=== PATIENT | female | born 1950 | race Caucasian/White ===

== ENCOUNTER 2020-01-17 13:04 | Outpatient (CLI) | payer MEDICARE, OTHER, SELFPAY ==
--- NOTE | 2020-01-22 15:57 | SLEEP_ITS ---
Home Sleep Test DATE OF STUDY: 01/17/2020 REASON FOR THE STUDY: Hypersomnia. HISTORY: This patient is a 69-year-old woman, 5 feet 4 inches tall, weighing 197 pounds with a body mass index of 33.8. She has complaints of loud snoring, which has been going on several years and difficulty waking up frequently throughout the night. She constantly snores and it is frequently loud enough that others complain about it. She does not awaken from sleep feeling short of breath or awaken with heartburn, belching or coughing. She frequently has trouble sleeping with a cold. She does not wake up gasping for breath at night, does not have breathing problems at night observed by others. Does not sweat excessively at night and does not notice her heart pounding or beating irregularly at night. She takes a daily nap in the afternoon. She does not fall asleep involuntarily or while driving. She does not have loss of muscle tone with strong emotion. She does not have daytime difficulties due to excessive sleepiness. She does not feel paralyzed on waking or falling asleep and does not have vivid dreamlike scenes upon awakening or falling asleep. She is not afraid to go to sleep. She does not have nightmares. She rarely remembers her dreams. She frequently has racing thoughts. She rarely feels sad. Occasionally feels anxious. She does not have muscular tension or notices parts of her body jerking. She does not kick at night. She does not have crawly achy feelings in her legs. She rarely has leg cramps at night. She does not have morning jaw pain. She constantly grinds her teeth and has a retainer to prevent this. She is not bothered by pain during the day. She is not awakened by pain during the night. She rarely wakes up feeling stiff in the morning. She does not wake up with sore achy muscles or spine pain. Normal bedtime is between 09:00 and 10:00 p.m., taking 30 minutes to fall asleep, typically waking twice at night, staying awake anywhere between moments and up to an hour. During this time, she will go to the bathroom. She wakes up at 7:00 in the morning. Weekend schedule is the same. She does take naps. A short nap may be refreshing. Most of the time, she feels adequate in the morning. She feels better in the morning than other times of day. MEDICAL COMORBIDITIES: She has prediabetes, hyperlipidemia, overactive bladder. MEDICATIONS: 1. Oxybutynin 10 mg daily. 2. Simvastatin 20 mg daily. HABITS: Smoked 30 years ago. Caffeine, 1 cup of coffee per day. Alcohol once to twice per month. DESCRIPTION OF THE STUDY: On the [place] Sleepiness Scale, the score is 8. This was conducted as an unattended type 3 portable home sleep test using 4 channel monitoring with respiratory effort channel, snoring channel, oxygen saturation channel, and heart rate channel. The study was scored using [facility] guidelines. Duration of the study was 9 hours 37 minutes. The apnea-hypopnea index was 21. Oxygen desaturation index is 20. Lowest desaturation is 80%. Baseline saturation is 92%, which is below normal. She had 38 apneas all of these were obstructive, 168 hypopneas, 571 snoring events. She had 188 desaturations and spent 17 minutes or 3% of the study below 88%. Heart rate ranged from 50 to 94. IMPRESSION: 1. This study provides evidence of at least moderate obstructive sleep apnea syndrome G47.33 with an AHI of 21. Deep desaturation to 80%. 38 apneas, 168 hypopneas, and 168 desaturations with 17 minutes spent below 33%. The bulk of the desaturation occurred late in the study and it was sustained. 2. Elevated body mass index 33.8. 3. Hyperlipidemia and prediabetes. 4. This patient should initiate treatment with auto PAP with pressures between 5 and 20 cm, heated humidifie
== END 2020-01-17 13:05 | disposition home or self-care (01) ==
LOC: ANHCSM 13:05
PROVIDERS: PCP Family Medicine; Visit Provider Family Medicine
DX: G47.33 Obstructive sleep apnea (adult) (pediatric) (principal)
CPT/HCPCS: 95806

== ENCOUNTER 2020-03-28 10:05 | Outpatient (CLI) | payer MEDICARE, OTHER, SELFPAY ==
--- NOTE | ~2020-03-28 | MM_ITS ---
EXAMINATION: MM screening [facility] BI w jamie HISTORY: Screening mammogram TECHNIQUE: Craniocaudal and mediolateral oblique 3-D tomosynthesis images were obtained and synthetic 2-D images were generated. CAD analysis was submitted and interpreted. COMPARISON: 03/27/2019, 03/23/2018, 02/12/2017 BREAST PARENCHYMAL COMPOSITION: The breasts are almost entirely fatty. FINDINGS: There is no evidence of suspicious mass, calcification, or architectural distortion to sugg est malignancy in either breast. There has been no suspicious interval change. IMPRESSION: 1. No mammographic evidence of malignancy. 2. Recommend routine screening mammography in one year. BI-RADS Category 1: Negative Reviewed, dictated and finalized at location A.
== END 2020-03-28 10:06 | disposition home or self-care (01) ==
PROVIDERS: PCP Family Medicine; Visit Provider Nurse Practitioner
DX: Z12.31 Encounter for screening mammogram for malignant neoplasm of breast (principal)
CPT/HCPCS: 77063; 77067

== ENCOUNTER 2021-02-10 14:21 | Outpatient (CLI) | payer MEDICARE, OTHER, SELFPAY ==
--- NOTE | ~2021-02-10 | XR_ITS ---
EXAMINATION: XR thoracic spine 3V DATE: 02/10/2021 14:49 INDICATION: Thoracic radiculopathy TECHNIQUE: AP, lateral and lateral swimmer's views of the thoracic spine were obtained. COMPARISON: None. FINDINGS: Bone alignment is normal. There is no fracture. There is mild loss of intervertebral disc s pace height at multiple levels in the thoracic spine. Small degenerative osteophytes project from the anterior endplates of multiple vertebral bodies. Calcifications in the left upper quadrant and at th e left hilum are consistent with old granulomatous disease. IMPRESSION: 1. Moderate cervical spondylosis without acute findings. Reviewed, dictated and finalized at location A.
== END 2021-02-10 14:22 | disposition home or self-care (01) ==
LOC: ANHIMG 14:25
PROVIDERS: PCP Family Medicine; Visit Provider Family Medicine
DX: M47.812 Spondylosis without myelopathy or radiculopathy, cervical region (principal); M54.14 Radiculopathy, thoracic region
CPT/HCPCS: 72072

== ENCOUNTER 2021-02-19 10:02 | Outpatient (CLI) | payer MEDICARE, OTHER, SELFPAY ==
--- NOTE | ~2021-02-19 | XR_ITS ---
EXAMINATION: XR abdomen/kub 1V EXAM DATE: 02/19/2021 10:16 INDICATION: R10.9 - Unspecified abdominal pain, right lower quadrant pain since January 29. TECHNIQUE: Frontal projection(s) of the abdomen for interpretation. There is no prior study for yogesh ruby. FINDINGS: Splenic granulomata. There is expected amount of colonic stool and gas. No small bowel d ilation, nonobstructive bowel gas pattern. There are no suspicious calcifications identified. The re is no organomegaly suspected. There are bony degenerative changes. Lung bases unremarkable IMPRESSION: Unremarkable abdomen x-ray exam. Reviewed, dictated and finalized at location B.
== END 2021-02-19 10:03 | disposition home or self-care (01) ==
LOC: ANHIMG 10:06
PROVIDERS: PCP Family Medicine; Visit Provider Family Medicine
DX: R10.9 Unspecified abdominal pain (principal)
CPT/HCPCS: 74018

== ENCOUNTER 2021-03-10 12:48 | Outpatient (CLI) | payer MEDICARE, OTHER, SELFPAY ==
--- NOTE | ~2021-03-10 | DEXA_ITS ---
Bone Density Report Name: Cora Prajapati Age: 70 Sex: Female Ethnicity: White Date of : 1950 Indication: monitoring treatment; height loss; postmenopausal Referring Provider: Brianna Light Study: Bone densitometry was performed. Exam Date: March 10, 2021 Accession number: [id number] Bone Density: Region BMD T-score Z-score Classification AP Spine (L1, L2) 1.287 2.8 4.7 Normal Femoral Neck (Left) 0.815 -0.3 1.4 Normal Total Hip (Left) 1.075 1.1 2.5 Normal Total Hip Bilateral Avg 1.067 1.0 2.5 Normal Femoral Neck (Right) 0.817 -0.3 1.5 Normal Total Hip (Right) 1.057 0.9 2.4 Normal World Health Organization criteria for BMD impression classify patients as: Normal (T-score at or above -1.0), Osteopenia (T-score between -1.0 and -2.5), or Osteoporosis (T-score at or below -2.5). 10-year Fracture Risk: FRAX not reported because: All T-scores for Spine Total, Hip Total, Femoral Neck at or above -1.0 Treated for osteoporosis Previous Exams: Region Exam Age BMD T-score BMD Change BMD Change Date g/cm2 vs Baseline vs Previous AP Spine(L1, L2) 03/10/2021 70 1.287 2.8 -0.028(-2.2%)* 0.024(1.9%)* 01/23/2019 68 1.262 2.6 -0.053(-4.0%)* -0.053(-4.0%)* 12/28/2016 66 1.315 3.1 Total Hip(Left) 03/10/2021 70 1.075 1.1 -0.089(-7.7%)* -0.067(-5.9%)* 01/23/2019 68 1.142 1.6 -0.022(-1.9%) -0.022(-1.9%) 12/28/2016 66 1.164 1.8 Total Hip(Right) 03/10/2021 70 1.057 0.9 -0.120(-10.2%) -0.055(-4.9%)* 01/23/2019 68 1.112 1.4 -0.065(-5.5%)* -0.065(-5.5%)* 12/28/2016 66 1.177 1.9 *Denotes significance at 95% confidence level, LSC for AP Spine = 0.022 g/cm2, LSC for Total Hip = 0.027 g/cm2 Clinical Information Provided by Patient: Is being treated for osteoporosis Has used the following medications: Boniva (i.e. ibandronate), Vitamin D, Calcium Patient maximum height was 65 Menopause Age: 51 No regular weight bearing exercise Does not regularly consume dairy products Drinks caffeinated beverages Onset of menses at age 12 Number of children 2 Impression: The patient has normal bone mass. The BMD for the Total Hip(Left) decreased, changing by -5.9% since the last DXA exam. The BMD for the Total Hip(Right) decreased, changing by -4.9% since the last DXA exam. Discussion: SIGNIFICANT BONE LOSS OBSERVED. Adherence to therapy (including calcium and vitamin D intake) should be assessed. If compliance i
== END 2021-03-10 12:49 | disposition home or self-care (01) ==
PROVIDERS: PCP Family Medicine; Visit Provider Family Medicine
DX: Z78.0 Asymptomatic menopausal state (principal)
CPT/HCPCS: 77080

== ENCOUNTER → 2021-03-13 12:05 | Outpatient (REF) | payer MEDICARE, OTHER, SELFPAY | LOC: ANHLAB 12:05 | PROVIDERS: PCP Family Medicine; Visit Provider Nurse Practitioner | DX: C43.72 Malignant melanoma of left lower limb, including hip (principal) | CPT/HCPCS: 88305; 88342 ==

== ENCOUNTER → 2021-03-27 10:00 | Outpatient (REF) | payer MEDICARE, OTHER, SELFPAY | LOC: ANHLAB 10:00 | PROVIDERS: PCP Family Medicine; Visit Provider Nurse Practitioner | DX: C43.72 Malignant melanoma of left lower limb, including hip (principal) | CPT/HCPCS: 88305; 88342 ==

== ENCOUNTER 2021-03-31 14:44 | Outpatient (CLI) | payer MEDICARE, OTHER, SELFPAY ==
--- NOTE | ~2021-03-31 | MM_ITS ---
EXAMINATION: MM screening [facility] BI w jamie HISTORY: Screening TECHNIQUE: Craniocaudal and mediolateral oblique 3-D tomosynthesis images were obtained and synthetic 2-D images were generated. CAD analysis was submitted and interpreted. COMPARISON: Comparison to multiple prior studies sequentially, with oldest reviewed study dated 02/07. BREAST PARENCHYMAL COMPOSITION: The breasts are almost entirely fatty. FINDINGS: There is no evidence of suspicious mass, calcification, or architectural distortion to sugg est malignancy in either breast. There has been no suspicious interval change. IMPRESSION: 1. No mammographic evidence of malignancy. 2. Recommend routine screening mammography in one year. BI-RADS Category 1: Negative Reviewed, dictated and finalized at location A.
== END 2021-03-31 14:45 | disposition home or self-care (01) ==
LOC: ANHIMG 14:46
PROVIDERS: PCP Family Medicine; Visit Provider Nurse Practitioner
DX: Z12.31 Encounter for screening mammogram for malignant neoplasm of breast (principal)
CPT/HCPCS: 77063; 77067

== ENCOUNTER 2021-12-10 08:04 | Emergency (ER) | payer MEDICARE, OTHER, SELFPAY ==
--- NOTE | 2021-12-10 08:10 | ED.URI ---
HPI - URI/Sore Throat General Chief Complaint: Upper Respiratory Infection Stated Complaint: COUGH/SINUS DRAINAGE Time Seen by Provider: 12/10/21 08:10 Source: patient Mode of arrival: ambulatory Limitations: no limitations History of Present Illness HPI Narrative: Ms. Prajapati is a 71-year-old female patient presenting to the clinic today with complaints of cough and sinus drainage x1 day. She reports she has some sinus congestion and a foul taste in her mouth. Productive cough with clear phlegm. She denies any fever or chills. She denies any known exposure to anybody with COVID, flu, or strep. She also states that she took a COVID test yesterday and it was negative. MD elicited complaint: cough and nasal congestion Related Data Allergies Allergy/AdvReac Type Severity Reaction Status Date / Time adhesive tape Allergy Mild Skin Verified 12/08/21 13:38 irritation erythromycin base Allergy Unknown Diarrhea Verified 12/08/21 13:38 Review of Systems Review of Systems: Pertinent positives per HPI. Patient denies any fever, chills, rash, headache, visual changes, dizziness, shortness of breath, chest pain, palpitations, nausea, vomiting, diarrhea, constipation, abdominal pain, or any urinary issues. [facility] Past Medical History Medical History GERD without esophagitis History of kidney stones (~11/2019) LT side - passed Hyperlipidemia Melanoma Overactive bladder Prediabetes Sleep apnea in adult Surgical History Surgical History History of cataract surgery 1994 - b/l History of dilatation and curettage 1992 History of melanoma excision 02/2021 - LLE thigh History of uvulectomy Family History Family History Mother Hypertension Other Family history of cardiovascular disease Social History Social History Smoking status: Never smoker Smoking end date: 05/31/90 Alcohol intake: current Substance use: never Substance use type: does not use Gender identity (if verbalized by the patient): Female Comments At the time of my signature, I reviewed and agree with the nursing past medical, surgical, social, and family history. There is no relevant family history pertinent to the patient complaint. Exam Narrative: General: Well-developed, well nourished, in no apparent distress Head: Normocephalic, atraumatic Eyes: Pupils equally round and reactive to light bilaterally, EOM intact, sclera and conjunctive clear, no discharge, lids normal Ears: TMs intact and clear, ear canals clear, no drainage, grossly hearing normal. Nose: Nares patent, clear discharge, mild inflammation, no sinus tenderness. Mouth: Oral pharynx without lesions or masses, good dentition, MMM. Postnasal drip, oropharynx mildly red Neck: Supple, trachea midline, no enlargement of anterior or posterior cervical nodes, no thyroid masses or goiter palpable. Cardio: Regular rate and rhythm, s1 and s2 normal, no murmur appreciated. Resp: Clear to auscultation bilaterally, no rhonchi, rales, wheezing or rubs Course Course Emergency Course: Portions of this record may have been created with voice recognition software. Level of Care: Express Care Visit Vital Signs Vital signs: Vital Signs Temperature 36.2 C L 12/10/21 08:15 Pulse Rate 81 12/10/21 08:15 Respiratory Rate 16 12/10/21 08:15 Blood Pressure 152/68 H 12/10/21 08:15 Pulse Oximetry 98 12/10/21 08:15 Temperature 36.2 C L 12/10/21 08:15 Pulse Rate 81 12/10/21 08:15 Respiratory Rate 16 12/10/21 08:15 Blood Pressure 152/68 H 12/10/21 08:15 Pulse Oximetry 98 12/10/21 08:15 Vital signs reviewed MDM - URI/Sore Throat MDM Narrative Medical decision making narrative: At the time of visit piotr
[2021-12-10 08:15] VITALS: BP 152/68; PULSE 81; RESP 16; TEMP 36.2; O2SAT 98
== END 2021-12-10 08:32 | disposition home or self-care (01) ==
PROVIDERS: Emergency Provider Nurse Practitioner Family; PCP Family Medicine
DX: R09.82 Postnasal drip (principal); J06.9 Acute upper respiratory infection, unspecified; K21.9 Gastro-esophageal reflux disease without esophagitis; E78.5 Hyperlipidemia, unspecified; R73.03 Prediabetes; G47.30 Sleep apnea, unspecified; N32.81 Overactive bladder; Z85.820 Personal history of malignant melanoma of skin
CPT/HCPCS: 99211; G0463

== ENCOUNTER 2021-12-12 08:22 | Emergency (ER) | payer MEDICARE, OTHER, SELFPAY ==
[2021-12-12 08:30] VITALS: BP 141/102; PULSE 96; RESP 16; TEMP 37.1; O2SAT 98
--- NOTE | 2021-12-12 08:39 | ED.URI ---
HPI - URI/Sore Throat General Chief Complaint: Upper Respiratory Infection Stated Complaint: sinus, drainage, fever Time Seen by Provider: 12/12/21 08:30 Source: patient and RN notes reviewed Mode of arrival: ambulatory Limitations: no limitations History of Present Illness HPI Narrative: 71-year-old female presented for complaint of cough and sinus congestion for 3 days. Endorses low-grade fever last night and states she was up coughing all night. Cough is productive, unknown color. Denies associated nausea, vomiting, diarrhea, shortness of breath or wheezing. She was seen at the [facility] 2 days ago for the same complaint. She has had 2 negative COVID test since onset of her symptoms, last 1 this morning. She states I need something. MD elicited complaint: cough Related Data Allergies Allergy/AdvReac Type Severity Reaction Status Date / Time adhesive tape Allergy Mild Skin Verified 12/12/21 08:29 irritation erythromycin base Allergy Unknown Diarrhea Verified 12/12/21 08:29 Review of Systems Review of Systems: CONSTITUTIONAL: Denies malaise, chills, sweats, fever EYES: Denies visual changes, redness, or discharge ENT: Reports rhinorrhea, congestion, sinus pain denies otalgia, sore throat CARDIOVASCULAR: Denies chest pain, palpitations, edema RESPIRATORY: Reports cough, post nasal drainage. Denies dyspnea GASTROINTESTINAL: Denies abdominal pain, nausea, vomiting, diarrhea SKIN: Denies rash or itching PMFSH Past Medical History Medical History GERD without esophagitis History of kidney stones (~11/2019) LT side - passed Hyperlipidemia Melanoma Overactive bladder Prediabetes Sleep apnea in adult Surgical History Surgical History History of cataract surgery 1994 - b/l History of dilatation and curettage 1993 History of melanoma excision 02/2021 - LLE thigh History of uvulectomy Family History Family History Mother Hypertension Other Family history of cardiovascular disease Social History Social History Smoking status: Never smoker Smoking end date: 05/31/90 Alcohol intake: current Substance use: never Substance use type: does not use Gender identity (if verbalized by the patient): Female Exam Narrative: GENERAL: well-appearing, nontoxic EYES: conjunctivae clear ENT: Mucous membranes moist. TM pearly spencer with normal light reflex bilaterally; no tragal tenderness. Oropharynx erythematous without lesions or exudate, no drooling, no hoarseness, no trismus, uvula midline. CHEST: Clear to auscultation, breath sounds equal. No wheezing, rhonchi, rales, or stridor. No respiratory distress, speaks in full sentences. HEART: Regular rate and rhythm. No murmur heard. SKIN: Warm, dry, no rash. NEURO: Alert and oriented x3. PSYCH: Normal mood and affect Course Course Emergency Course: Patient is aware of diagnosis, understands and agrees to treatment plan. Anticipatory guidance given. Patient agrees to follow-up as directed and is aware of reasons to seek care at the emergency department. Portions of this record may have been created with voice recognition software Level of Care: Express Care Visit Vital Signs Vital signs: Vital Signs Temperature 98.8 F 12/12/21 08:30 Pulse Rate 96 12/12/21 08:30 Respiratory Rate 16 12/12/21 08:30 Blood Pressure 141/102 H 12/12/21 08:30 Pulse Oximetry 98 12/12/21 08:30 Temperature 98.8 F 12/12/21 08:30 Pulse Rate 96 12/12/21 08:30 Respiratory Rate 16 12/12/21 08:30 Blood Pressure 141/102 H 12/12/21 08:30 Pulse Oximetry 98 12/12/21 08:30 reviewed MDM - URI/Sore Throat MDM Narrative Medical decision making narrative: Advised supportive measures for URI and signs/symptoms
== END 2021-12-12 08:46 | disposition home or self-care (01) ==
PROVIDERS: Emergency Provider Nurse Practitioner Family; PCP Family Medicine
DX: J06.9 Acute upper respiratory infection, unspecified (principal); Z87.891 Personal history of nicotine dependence; K21.9 Gastro-esophageal reflux disease without esophagitis; E78.5 Hyperlipidemia, unspecified; R73.03 Prediabetes; G47.30 Sleep apnea, unspecified; Z85.820 Personal history of malignant melanoma of skin; N32.81 Overactive bladder
CPT/HCPCS: 99213; G0463

== ENCOUNTER 2022-01-12 11:38 | Outpatient (CLI) | payer MEDICARE, OTHER, SELFPAY ==
[2022-01-12 19:07] LABS: Alanine Aminotransferase 30 U/L (6-35); Albumin Level 4.3 g/dL (3.5-5.1); Alkaline Phosphatase 118 U/L (38-126); Anion Gap 7 mmol/L (8-16); Bilirubin,Total 0.3 mg/dL (0.2-1.3); Blood Urea Nitrogen 16 mg/dL (7-17); Calcium 9.5 mg/dL (8.4-10.2); Carbon Dioxide 29 mmol/L (22-30); Chloride 102 mmol/L (98-107); Estimated Glomerular Filt Rate > 60; Glucose 102 mg/dL (65-110); Potassium 4.7 mmol/L (3.4-5.0); Sodium 138 mmol/L (137-145)
[2022-01-12 20:57] LABS: Hemoglobin A1C 5.8 % (<5.7)
[2022-01-15 14:02] LABS: Aspartate Amino Transferase 35 U/L (14-36)
== END 2022-01-12 11:39 | disposition home or self-care (01) ==
LOC: ANHGOSHLAB 11:42
PROVIDERS: PCP Family Medicine; Visit Provider Family Medicine
DX: E78.5 Hyperlipidemia, unspecified (principal); R73.03 Prediabetes
CPT/HCPCS: 36415; 80053; 83036

== ENCOUNTER 2022-05-05 10:44 | Outpatient (CLI) | payer MEDICARE, OTHER, SELFPAY ==
--- NOTE | ~2022-05-05 | MM_ITS ---
EXAMINATION: MM screening [facility] BI w jamie HISTORY: Screening mammogram TECHNIQUE: Craniocaudal and mediolateral oblique 3-D tomosynthesis images were obtained and synthetic 2-D images were generated. CAD analysis was submitted and interpreted. COMPARISON: 03/31/2021, 03/28/2020, 03/27/2019 BREAST PARENCHYMAL COMPOSITION: The breasts are almost entirely fatty. FINDINGS: No suspicious mass, calcification, or architectural distortion are identified in either michelle ast to suggest malignancy. There has been no suspicious interval change. IMPRESSION: 1. No mammographic evidence of malignancy. 2. Recommend routine screening mammography in one year. BI-RADS Category 1: Negative Reviewed, dictated and finalized at location A. STRIAL DESIGN INTERN
== END 2022-05-05 10:45 | disposition home or self-care (01) ==
LOC: ANHIMG 10:47
PROVIDERS: PCP Family Medicine; Visit Provider Family Medicine
DX: Z12.31 Encounter for screening mammogram for malignant neoplasm of breast (principal)
CPT/HCPCS: 77063; 77067

== ENCOUNTER 2022-05-20 01:38 | Day surgery (SDC) | payer MEDICARE, OTHER, SELFPAY ==
[2022-05-15 11:25] VITALS: BMI 33.8
--- NOTE | 2022-05-19 14:09 | PM.HPGS ---
History of Present Illness History of Present Illness Consent: Risks, benefits, and alternatives have been discussed and questions answered. Patient agrees to proceed with procedure. Chief complaint: neoplasm screening Narrative: Cora Prajapati is a 71 year old female referred for colon cancer screening. Review of Systems Review of Systems: All systems reviewed & are unremarkable except as noted in HPI and below PMFSH Past Medical History Medical History GERD without esophagitis History of kidney stones (~11/2019) LT side - passed Hyperlipidemia Melanoma Overactive bladder Prediabetes Sleep apnea in adult Surgical History Surgical History History of cataract surgery 1994 - b/l History of dilatation and curettage 1992 History of melanoma excision 02/2021 - LLE thigh History of uvulectomy Family History Family History Mother Hypertension Other Family history of cardiovascular disease Social History Social History Smoking status: Former smoker Tobacco type: cigarettes Smoking end date: 05/31/90 Alcohol intake: current Substance use: never Substance use type: does not use Living arrangements: with family Gender identity (if verbalized by the patient): Female Spiritual care concerns: No Meds Home Medications and Allergies Home Medications Medication Instructions Recorded Confirmed Type atorvastatin 20 mg tablet 20 mg PO QHS #90 tabs 09/15/21 05/15/22 Rx oxybutynin chloride 10 mg 10 mg PO DAILY #90 tabs 01/21/22 05/15/22 Rx tablet,extended release 24 hr Allergies Allergy/AdvReac Type Severity Reaction Status Date / Time adhesive tape Allergy Mild Skin Verified 05/20/22 06:16 irritation erythromycin base AdvReac Intermediate Diarrhea Verified 05/20/22 06:16 Exam Const: General: alert Orientation/consciousness: patient oriented x3 Resp: Auscultation: clear to auscultation bilaterally Cardio: Rhythm: regular rhythm GI: GI Palp: Yes Soft to palpation and No Tenderness to palpation present (GI) Neuro: General: patient oriented x3 Assessment and Plan Assessment and plan (1) Colon cancer screening: Code(s): Z12.11 - Encounter for screening for malignant neoplasm of colon Status: Acute Assessment and Plan: Colonoscopy with possible biopsy or polypectomy or cautery or injection of substances.
[2022-05-20 06:17] VITALS: BMI 32.4
[2022-05-20 06:21] VITALS: BP 150/69; PULSE 83; RESP 18; TEMP 36.3; O2SAT 98
[2022-05-20] MEDS: LACTATED RINGERS 1,000 ML 150 ML IV CONT (06:22)
--- NOTE | 2022-05-20 06:52 | WPDANESEPPF ---
Anes - Initial Pre Proc Eval Procedure: Operation Date: 05/20/22 07:30 Proposed Procedures p Screening Colonoscopy - Ascencion Murray MD Date/Time: 05/20/22 06:52 Surgeon: Ascencion Murray MD Pre Op Diagnosis: neoplasm screening Patient Data Age: 71 Gender: F Height: 1.63 m Weight: 85.8 kg Last Vital Signs Temp 36.3 C L 05/20/22 06:21 Pulse 83 05/20/22 06:21 Resp 18 05/20/22 06:21 BP 150/69 H 05/20/22 06:21 Pulse Ox 98 05/20/22 06:21 O2 Del Method Room Air 05/20/22 06:21 Allergies Allergy/AdvReac Type Severity Reaction Status Date / Time adhesive tape Allergy Mild Skin Verified 05/20/22 06:16 irritation erythromycin base AdvReac Intermediate Diarrhea Verified 05/20/22 06:16 Home Medications Medication Instructions Recorded Confirmed Type atorvastatin 20 mg tablet 20 mg PO QHS #90 tabs 09/15/21 05/15/22 Rx oxybutynin chloride 10 mg 10 mg PO DAILY #90 tabs 01/21/22 05/15/22 Rx tablet,extended release 24 hr Patient hx anesthesia problems: none Family hx anesthesia problems: none Results Review: All pre-operative results and documents have been reviewed as part of the pre-operative evaluation. [facility] Past Medical History Medical History GERD without esophagitis History of kidney stones (~11/2019) LT side - passed Hyperlipidemia Melanoma Overactive bladder Prediabetes Sleep apnea in adult Surgical History Surgical History History of cataract surgery 1994 - b/l History of dilatation and curettage 1992 History of melanoma excision 02/2021 - LLE thigh History of uvulectomy Family History Family History Mother Hypertension Other Family history of cardiovascular disease Social History Social History Smoking status: Former smoker Tobacco type: cigarettes Smoking end date: 05/31/90 Alcohol intake: current Substance use: never Substance use type: does not use Living arrangements: with family Gender identity (if verbalized by the patient): Female Spiritual care concerns: No Anes - Eval Final PreProcedure Day of Procedure 05/20/22 06:52 Patient weight: obese Heart: regular rate and rhythm Lungs: clear to auscultation Airway: Mallampati scale class II Neurological: alert and oriented Last oral intake: >/= 8 hours ASA classification: III Emergent: no Anesthetic plan: proceed Anesthesia type and monitoring: general GIVS and standard monitoring Results Review: All pre-operative results and documents have been reviewed as part of the pre-operative evaluation. Informed Consent: The patient's anesthetic plan and its attendant risks and benefits were discussed with the patient/family/POA. Questions were solicited and answers provided to the satisfaction of the patient/family/POA.
[2022-05-20 07:45] VITALS: BP 113/64; PULSE 73; RESP 16; O2SAT 94
[2022-05-20 07:55] VITALS: BP 127/64; PULSE 64; RESP 16; O2SAT 94
[2022-05-20 08:05] VITALS: BP 128/63; PULSE 64; RESP 16; O2SAT 96
== END 2022-05-20 08:15 | disposition home or self-care (01) ==
PROVIDERS: PCP Family Medicine; Visit Provider Internal Medicine Gastroenterology
PROC: 0DJD8ZZ Inspection of Lower Intestinal Tract, Via Natural or Artificial Opening Endoscopic (ICD-10-PCS; CPT 45378; principal; 2022-05-20 07:30)
DX: Z12.11 Encounter for screening for malignant neoplasm of colon (principal); K57.30 Diverticulosis of large intestine without perforation or abscess without bleeding; E78.5 Hyperlipidemia, unspecified; R73.03 Prediabetes; G47.30 Sleep apnea, unspecified; Z87.891 Personal history of nicotine dependence; E66.9 Obesity, unspecified; Z68.32 Body mass index [BMI] 32.0-32.9, adult
CPT/HCPCS: G0121; J2704; J7120

== ENCOUNTER 2022-07-15 12:55 | Outpatient (CLI) | payer MEDICARE, OTHER, SELFPAY ==
[2022-07-15 19:57] LABS: Basophils Absolute Auto 0.1 K/mm3 (0.0-0.1); Basophils Percent Auto 0.8 % (0.2-1.2); Eosinophils Absolute Auto 0.1 K/mm3 (0-0.3); Eosinophils Percent Auto 1.2 % (0-4.4); Hemoglobin 15.3 g/dL (12.0-15.0); Immature Granulocyte Absolute 0.01 K/mm3 (0.00-0.031); Immature Granulocyte Percent A 0.1 % (0-0.5); Lymphocytes Absolute Auto 1.91 K/mm3 (0.9-3.2); Lymphocytes Percent Auto 24.6 % (18.3-44.2); Mean Corpuscular Hemoglobin 30.5 pg (26-34); Mean Corpuscular Volume 89.6 fl (80-100); Mean Platelet Volume 9.8 fl (7.4-10.4); Monocytes Absolute Auto 0.4 K/mm3 (0.1-0.6); Monocytes Percent Auto 5.5 % (2.6-8.5); Neutrophils Absolute Auto 5.3 K/mm3 (1.3-6.7); Neutrophils Percent Auto 67.8 % (45.5-73.1); Platelet Count Result 275 k/mm3 (150-375); Red Blood Count 5.02 M/mm3 (4.2-5.4); Red Cell Distribution Width 13.8 % (11.5-14.5); White Blood Count 7.8 K/mm3 (4.5-10.0)
[2022-07-15 21:04] LABS: Hemoglobin A1C 5.8 % (<5.7)
[2022-07-15 21:09] LABS: Vitamin D 25 Hydroxy 32.6 ng/mL
[2022-07-15 21:20] LABS: Alanine Aminotransferase 38 U/L (6-35); Albumin Level 4.4 g/dL (3.5-5.1); Alkaline Phosphatase 118 U/L (38-126); Anion Gap 8 mmol/L (8-16); Aspartate Amino Transferase 37 U/L (14-36); Bilirubin,Total 0.7 mg/dL (0.2-1.3); Blood Urea Nitrogen 13 mg/dL (7-17); Calcium 9.1 mg/dL (8.4-10.2); Carbon Dioxide 26 mmol/L (22-30); Chloride 103 mmol/L (98-107); Cholesterol 191 mg/dL (0-200); Estimated Glomerular Filt Rate > 60; Glucose 102 mg/dL (65-110); HDL Direct 57 mg/dL; Potassium 4.2 mmol/L (3.4-5.0); Sodium 137 mmol/L (137-145); Triglycerides 194 mg/dL (<150)
[2022-07-15 21:23] LABS: Thyroid Stimulating Hormone Reflex 0.809 uIU/mL (0.465-4.68)
[2022-07-15 21:31] LABS: LDL Cholesterol Direct 83 mg/dL
== END 2022-07-15 12:56 | disposition home or self-care (01) ==
LOC: ANHGOSHLAB 12:56
PROVIDERS: PCP Family Medicine; Visit Provider Family Medicine
DX: E78.5 Hyperlipidemia, unspecified (principal); E53.8 Deficiency of other specified B group vitamins; R73.03 Prediabetes; I10 Essential (primary) hypertension; R03.0 Elevated blood-pressure reading, without diagnosis of hypertension; E55.9 Vitamin D deficiency, unspecified
CPT/HCPCS: 36415; 80053; 80061; 82306; 82607; 83036; 84443; 85025

== ENCOUNTER 2023-01-13 10:58 | Outpatient (CLI) | payer MEDICARE, OTHER, SELFPAY ==
[2023-01-13 20:53] LABS: Alanine Aminotransferase 47 U/L (6-35); Albumin Level 4.4 g/dL (3.5-5.1); Alkaline Phosphatase 127 U/L (38-126); Anion Gap 8 mmol/L (8-16); Aspartate Amino Transferase 51 U/L (14-36); Bilirubin,Total 0.5 mg/dL (0.2-1.3); Blood Urea Nitrogen 16 mg/dL (7-17); Calcium 9.5 mg/dL (8.4-10.2); Carbon Dioxide 31 mmol/L (22-30); Chloride 96 mmol/L (98-107); Estimated Glomerular Filt Rate > 60; Glucose 158 mg/dL (65-110); Potassium 3.4 mmol/L (3.4-5.0); Sodium 135 mmol/L (137-145)
== END 2023-01-13 10:59 | disposition home or self-care (01) ==
PROVIDERS: PCP Family Medicine; Visit Provider Family Medicine
DX: R73.03 Prediabetes (principal); I10 Essential (primary) hypertension
CPT/HCPCS: 36415; 80053; 83036

== ENCOUNTER 2023-03-11 09:53 | Outpatient (CLI) | payer MEDICARE, OTHER, SELFPAY ==
--- NOTE | ~2023-03-11 | DEXA_ITS ---
Bone Density Report Name: SVETLANA MARTINEZ Age: 72 Sex: Female Ethnicity: White Date of : 1950 Indication: postmenopausal; screening for osteoporosis; prior fracture; cancer; Referring Provider: DONAVAN NUNEZ Study: Bone densitometry was performed. Exam Date: March 11, 2023 Accession number: [id number] Bone Density: Region BMD T-score Z-score Classification AP Spine(L1-L4) 1.367 2.9 5.1 Normal Femoral Neck (Left) 0.855 0.1 1.9 Normal Total Hip (Left) 1.107 1.4 2.9 Normal Femoral Neck (Right) 0.840 -0.1 1.8 Normal Total Hip (Right) 1.098 1.3 2.8 Normal Total Hip Mean 1.102 1.4 2.9 Normal World Health Organization criteria for BMD impression classify patients as: Normal (T-score at or above -1.0), Osteopenia (T-score between -1.0 and -2.5), or Osteoporosis (T-score at or below -2.5). 10-year Fracture Risk: FRAX not reported because: All T-scores for Spine Total, Hip Total, Femoral Neck at or above -1.0 Previous Exams: Region Exam Age BMD T-score BMD Change BMD Change Date g/cm2 vs Baseline vs Previous AP Spine (L1-L4) 03/11/2023 72 1.367 2.9 -0.011 (-0.8%) -0.011 (-0.8%) 12/28/2016 66 1.378 3.0 Total Hip(Left) 03/11/2023 72 1.107 1.4 -0.057 (-4.9%) 0.032 (3.0%)* 03/10/2021 70 1.075 1.1 -0.089 (-7.7%) -0.067 (-5.9%) 01/23/2019 68 1.142 1.6 -0.022 (-1.9%) -0.022 (-1.9%) 12/28/2016 66 1.164 1.8 Total Hip(Right) 03/11/2023 72 1.098 1.3 -0.079 (-6.7%) 0.040 (3.8%)* 03/10/2021 70 1.057 0.9 -0.120 (-10.2% -0.055 (-4.9%) 01/23/2019 68 1.112 1.4 -0.065 (-5.5%) -0.065 (-5.5%) 12/28/2016 66 1.177 1.9 *Denotes significance at 95% confidence level, LSC for AP Spine = 0.022 g/cm2, LSC for Total Hip = 0.027 g/cm2 Clinical Information Provided by Patient: Has had a low trauma fracture Has used the following medications: Calcium Has the following medical conditions: Cancer Patient maximum height was 64 Menopause Age: 51 No regular weight bearing exercise Onset of menses at age 12 Impression: The patient has normal bone mass. The patient has risk factors, including: previous fracture. No significant bone loss was observed. Discussion: BONE DENSITY IS ABOVE THE MINIMUM DESIRABLE LEVEL AT ALL SKELETAL SITES TESTED. This patient?s bone mineral density is above the minimum desirable level (T-score -1.0 or better) at all sites measured. The patient should f
== END 2023-03-11 09:54 | disposition home or self-care (01) ==
PROVIDERS: PCP Family Medicine; Visit Provider Family Medicine
DX: Z78.0 Asymptomatic menopausal state (principal)
CPT/HCPCS: 77080

== ENCOUNTER → 2023-04-15 08:56 | Outpatient (CLI) | payer MEDICARE, OTHER, SELFPAY ==
--- NOTE | ~2023-04-15 | XR_ITS ---
Supine and upright views of the abdomen Clinical history: Left flank pain COMPARISON: 02/19/2021 Findings: Bowel gas pattern is nonspecific. No evidence for obstruction or free air. Multiple calcifi ed splenic granulomas are present. No renal stone identified. Osseous structures are intact. Impression: No renal stone is seen. Numerous calcified splenic granulomas. Reviewed, dictated and finalized at [facility]. [employer] Impression: No renal stone is seen. Numerous calcified splenic granulomas.
== END ==
PROVIDERS: PCP Family Medicine; Visit Provider Family Medicine
DX: R10.9 Unspecified abdominal pain (principal); Z87.442 Personal history of urinary calculi
CPT/HCPCS: 74018

== ENCOUNTER 2023-05-06 09:38 | Outpatient (CLI) | payer MEDICARE, OTHER, SELFPAY ==
--- NOTE | ~2023-05-06 | MM_ITS ---
EXAMINATION: MM screening vee BI w jamie HISTORY: Screening mammogram TECHNIQUE: Craniocaudal and mediolateral oblique 3-D tomosynthesis images were obtained and synthetic 2-D images were generated. CAD analysis was submitted and interpreted. COMPARISON: 05/05/2022, 03/31/2021, 03/28/2020 BREAST PARENCHYMAL COMPOSITION:The breasts are almost entirely fatty FINDINGS: No suspicious mass, calcification, or architectural distortion are identified in either michelle ast to suggest malignancy. There has been no suspicious interval change. IMPRESSION: No mammographic evidence of malignancy. Recommend routine screening mammography in one year. BI-RADS Category 1: Negative Reviewed, dictated and finalized at location M. TRIMMER
== END 2023-05-06 09:39 | disposition home or self-care (01) ==
PROVIDERS: PCP Family Medicine; Visit Provider Family Medicine
DX: Z12.31 Encounter for screening mammogram for malignant neoplasm of breast (principal)
CPT/HCPCS: 77063; 77067

== ENCOUNTER 2023-07-21 09:31 | Outpatient (CLI) | payer MEDICARE, OTHER, SELFPAY ==
[2023-07-21 13:41] LABS: Basophils Absolute Auto 0.1 K/mm3 (0.0-0.1); Basophils Percent Auto 1.2 % (0.2-1.2); Eosinophils Absolute Auto 0.2 K/mm3 (0-0.3); Eosinophils Percent Auto 2.8 % (0-4.4); Hematocrit 50.1 % (37.0-47.0); Hemoglobin 16.5 g/dL (12.0-15.0); Immature Granulocyte Absolute 0.01 K/mm3 (0.00-0.031); Immature Granulocyte Percent A 0.1 % (0-0.5); Lymphocytes Percent Auto 32.6 % (18.3-44.2); Mean Corpuscular HGB Conc 32.9 g/dl (32-36); Mean Corpuscular Hemoglobin 30.3 pg (26-34); Mean Corpuscular Volume 92.1 fl (80-100); Mean Platelet Volume 10.4 fl (7.4-10.4); Monocytes Absolute Auto 0.6 K/mm3 (0.1-0.6); Monocytes Percent Auto 8.5 % (2.6-8.5); Neutrophils Absolute Auto 3.7 K/mm3 (1.3-6.7); Neutrophils Percent Auto 54.8 % (45.5-73.1); Platelet Count Result 263 k/mm3 (150-375); Red Blood Count 5.44 M/mm3 (4.2-5.4); Red Cell Distribution Width 14.1 % (11.5-14.5); White Blood Count 6.7 K/mm3 (4.5-10.0)
[2023-07-21 13:51] LABS: Hemoglobin A1C 6.2 % (<5.7)
[2023-07-21 14:22] LABS: Alanine Aminotransferase 44 U/L (6-35); Albumin Level 4.4 g/dL (3.5-5.1); Alkaline Phosphatase 121 U/L (38-126); Anion Gap 7 mmol/L (8-16); Aspartate Amino Transferase 72 U/L (14-36); Bilirubin,Total 0.8 mg/dL (0.2-1.3); Blood Urea Nitrogen 19 mg/dL (7-17); Calcium 10.3 mg/dL (8.4-10.2); Carbon Dioxide 30 mmol/L (22-30); Chloride 99 mmol/L (98-107); Cholesterol 178 mg/dL (0-200); Estimated Glomerular Filt Rate > 60; Glucose 103 mg/dL (65-110); HDL Direct 53 mg/dL; Sodium 136 mmol/L (137-145); Triglycerides 172 mg/dL (<150)
[2023-07-21 14:33] LABS: LDL Cholesterol Direct 92 mg/dL
[2023-07-21 14:42] LABS: Vitamin D 25 Hydroxy 32.8 ng/mL
[2023-07-21 14:56] LABS: Thyroid Stimulating Hormone Reflex 0.847 uIU/mL (0.465-4.68)
== END 2023-07-21 09:32 | disposition home or self-care (01) ==
LOC: ANHGOSHLAB 09:33
PROVIDERS: PCP Family Medicine; Visit Provider Family Medicine
DX: E78.5 Hyperlipidemia, unspecified (principal); E55.9 Vitamin D deficiency, unspecified; I10 Essential (primary) hypertension; E53.8 Deficiency of other specified B group vitamins; R73.03 Prediabetes
CPT/HCPCS: 36415; 80053; 80061; 82306; 82607; 83036; 84443; 85025

== ENCOUNTER 2023-09-16 05:54 | Day surgery (SDC) | payer MEDICARE, OTHER, SELFPAY ==
[2023-08-25 14:05] VITALS: BMI 34.5
[2023-09-03 11:35] VITALS: BMI 34.9
[2023-09-16 06:20] VITALS: BP 138/78; PULSE 65; RESP 16; TEMP 36.9; O2SAT 97
--- NOTE | 2023-09-16 07:00 | WPDHPUPDATE1 ---
History and Physical Update Update Date/Time: 09/16/23 07:00 Patient seen and examined in pre-operative holding area. No interval change in medical history or symptoms. Patient recalls previous discussion of benefits and alternatives to procedure. Continues to desire to proceed with Right Middle Finger mucous cyst and osteopyte excision and concurrent dip joint Ulnar collateral ligament repair . Reviewed procedure, post-op expectations and risks including but not limited to bleeding, infection, injury to tendon/nerve/vessel, decreased hand function, stiffness, RSD, no change or worsening of symptoms, recurrence. I discussed the possible use of assistants and their participation in the case. Patient stated understanding and signed the consent form wishing to proceed.
--- NOTE | 2023-09-16 07:01 | W.PM.PROC2 ---
Procedure Note - Detailed Date of Procedure 09/16/23 Pre-op Diagnosis R MF digital mucous cyst and UCL sprain Post-op Diagnosis Same Procedure Performed R MF mucous cyst and osteopyte excision and concurrent dipj UCL repair Surgeon Carolina Joshi MD Straw Hat Brim Cutter Operator Emy Simental PA-C Anesthesia MAC Description of Procedure INFORMED CONSENT:The patient was seen and examined and marked in the pre-op area.? The patient signed the consent form. PROCEDURE IN DETAIL: The patient taken back to OR on the stretcher in supine position. Time out performed with anesthesia, surgeon and staff agreeing on patient's name site and surgery to be performed SCDs were placed on the lower extremities and inflated A tourniquet was placed on {right} upper extremity and antibiotics given IV After anesthesia administered sedation I injected {5}cc 1%lido and 0.5% marcaine plain for digital block in the palm The?{right upper extremity}?was prepped and draped in sterile fashion the??{right upper extremity} was??exsanguinated with Esmarch bandage and tourniquet inflated to 250mmHg I proceededWith making a curvilinear incision over the right middle finger mucous is creating a radial based flap that also extended far enough ulnarly in order to reach the ulnar collateral ligament for planned repair. This incision was made with a 15 blade scalpel through skin and dermis. This flap was then elevated Exposing the underlying mucous cyst and osteophyte. Using a 15 blade I proceeded with circumferential dissection of the mucous cyst off of the DIP joint capsule. near the origin of the mucous cyst there was an osteophyte off of the middle phalanx. I made an incision with 15 blade through periosteum and reflected the periosteum and extensor tendon to expose the osteophyte. A rongeur was used to remove this osteophyte until smooth. Bipolar cautery was used for the base of the mucous cyst and the osteophyte. I irrigated with normal saline. I repaired the capsular defect with 4-0 Vicryl. Next I took my attention to the ulnar collateral ligament of the PIP joint. It was notably attenuated but generally intact. I proceeded with using a 4-0 FiberWire suture in [id number] fashion to shorten and reinforce this loose ulnar collateral ligament. This was done while holding the joint in reduction. After this was completed it was noted that the right middle finger appeared straighter in appearance and there was resistance to radial deviation of the finger at the PIP joint. I irrigated with normal saline. Skin was closed with 5 0 chromic. The incision was covered with xeroform then 4x4, tube gauze, and finger splint across dipjoint was applied after the tourniquet was let down noting the hand was warm and well perfused.? Patient awaken from anesthesia and transferred to recovery in stable condition Complications - none EBL- 1cc Disposition - home in stable conditions Emy Simental PA-C was essential for positioniing, retraction, closure and dressing placement [facility] Billing Surgery - Charge Forward: Surgery Billing ([id number] same for emy kwan )
--- NOTE | 2023-09-16 07:23 | WPDANESEPPF ---
Anes - Initial Pre Proc Eval Procedure: Operation Date: 09/16/23 07:30 Proposed Procedures p Excision Mucous Cyst and Osteophyte Right Middle Finger - Carolina Joshi MD s Concurrent Distal Interphalangeal Joint Ulnar Collateral Ligament Repair - Carolina Joshi MD Date/Time: 09/16/23 07:23 Surgeon: Carolina Joshi MD Pre Op Diagnosis: Ganglion and Digital Muscous Cyst Right Hand Patient Data Age: 72 Gender: F Height: 1.6 m Weight: 89.75 kg Last Vital Signs Temp 36.9 C 09/16/23 06:20 Pulse 65 09/16/23 06:20 Resp 16 09/16/23 06:20 BP 138/78 09/16/23 06:20 Pulse Ox 97 09/16/23 06:20 O2 Del Method Room Air 09/16/23 06:20 Allergies Allergy/AdvReac Type Severity Reaction Status Date / Time adhesive tape Allergy Mild Skin Verified 09/16/23 06:18 irritation erythromycin base AdvReac Intermediate Diarrhea Verified 09/16/23 06:18 amlodipine AdvReac Mild pedal edema Verified 09/16/23 06:18 lisinopril AdvReac Mild cough Verified 09/16/23 06:18 losartan AdvReac Mild Cough Verified 09/16/23 06:18 Home Medications Medication Instructions Recorded Confirmed Type atorvastatin 40 mg tablet 40 mg PO QHS #90 tabs 07/21/23 09/16/23 Rx hydrochlorothiazide 25 mg tablet 25 mg PO DAILY #90 tabs 07/21/23 09/16/23 Rx metoprolol succinate 25 mg 25 mg PO DAILY #90 tabs 07/21/23 09/16/23 Rx tablet,extended release 24 hr oxybutynin chloride 10 mg 10 mg PO DAILY #90 tabs 07/21/23 09/16/23 Rx tablet,extended release 24 hr tramadol 50 mg tablet 50 mg PO Q6H PRN pain #8 tabs 09/16/23 Rx Patient hx anesthesia problems: none Family hx anesthesia problems: none Results Review: All pre-operative results and documents have been reviewed as part of the pre-operative evaluation. [facility] Past Medical History Medical History CAD in [place]reafski artery Essential (primary) hypertension GERD without esophagitis resolved History of kidney stones (~11/2019) LT side - passed Hyperlipidemia Malignant melanoma of left lower extremity (~2020) Overactive bladder Prediabetes Sleep apnea in adult Surgical History Surgical History History of cataract surgery 1994 - b/l History of dilatation and curettage 1993 History of melanoma excision 02/2021 - LLE thigh History of uvulectomy (~2008) Family History Family History Mother Hypertension Other Family history of cardiovascular disease Social History Social History Social History: Caffeine- coffee daily Smoking status: Former smoker Tobacco type: cigarettes Smoking end date: 05/31/90 Alcohol intake: current Alcohol use details: occasionally Substance use: never Substance use type: does not use Do You Feel Safe in your Home?: Yes Lack of Transportation: No Lack of Food: Never True Current Housing: I Have Housing Concerned About Future Housing: No Difficulty Paying Gas/Electric Bills: No Difficulty Paying for Meds: No Currently Unemployed: No Education: Bachelor's Degree Difficulty w/ Childcare or Family Care: No Living arrangements: alone Occupation/Education: retired Gender identity (if verbalized by the patient): Female Spiritual care concerns: No Anes - Eval Final PreProcedure Day of Procedure 09/16/23 07:23 Patient weight: obese Heart: regular rate and rhythm Lungs: clear to auscultation Airway: Mallampati scale class II Neurological: alert and oriented Last oral intake: >/= 8 hours ASA classification: III Emergent: no Anesthetic plan: proceed Anesthesia type and monitoring: general GIVS and standard monitoring Results Review: All pre-operative results and documents have been reviewed as part of the pre-operative evaluation. Informed Consen
[2023-09-16] MEDS: LACTATED RINGERS 1,000 ML 30 ML IV CONT (07:26)
[2023-09-16] MEDS: ceFAZolin SODIUM 2 GM/20 ML SW SYRINGE IV PUSH (07:30)
[2023-09-16] MEDS: BUPivacaine HCL 0.5% 10 ML AMP 2.5 ML INFILTRATE (07:34)
[2023-09-16] MEDS: LIDOCAINE HCL 1% LOCAL INJ 20 ML VIAL 2.5 ML INFILTRATE (07:54)
[2023-09-16 08:06] VITALS: BP 125/61; PULSE 58; RESP 14; O2SAT 97
[2023-09-16 08:16] VITALS: BP 137/62; PULSE 54; RESP 16; O2SAT 96
[2023-09-16 08:26] VITALS: BP 145/68; PULSE 54; RESP 14; O2SAT 99
--- NOTE | 2023-09-16 08:29 | WPDANESPN ---
Anes - Prog Note Post-Op Date/Time: 09/16/23 08:29 Cardiovascular status: normal Respiratory status: normal Airway patency: baseline Mental status: baseline Post-Op hydration status: normal Vital Signs: Last Vital Signs Temp 36.9 C 09/16/23 06:20 Pulse 54 L 09/16/23 08:16 Resp 16 09/16/23 08:16 BP 137/62 09/16/23 08:16 Pulse Ox 96 09/16/23 08:16 O2 Del Method Room Air 09/16/23 08:16 Pain Score (VAS): 0 I/O: Intake & Output 09/15/23 09/16/23 09/16/23 23:59 07:59 15:59 Intake Total 600 Balance 600 Patient Feedback: Patient satisfied with anesthetic care.
[2023-09-16 08:36] VITALS: BP 149/56; PULSE 55; RESP 16; O2SAT 99
== END 2023-09-16 08:44 | disposition home or self-care (01) ==
PROVIDERS: PCP Family Medicine; Visit Provider Plastic Surgery
PROC: (CPT 26540; principal; 2023-09-16 07:30)
PROC: (CPT 26540; 2023-09-16 07:30)
DX: S63.632A Sprain of interphalangeal joint of right middle finger, initial encounter (principal); M71.341 Other bursal cyst, right hand
CPT/HCPCS: 26540; 26160

== ENCOUNTER 2023-09-16 07:00 | Outpatient (NON) | payer MEDICARE, OTHER, SELFPAY | END 2023-09-16 07:01 | disposition home or self-care (01) | LOC: ANHLAB 09-17 08:14 | PROVIDERS: PCP Family Medicine; Visit Provider Plastic Surgery | DX: M67.441 Ganglion, right hand (principal) | CPT/HCPCS: 88305; 88311 ==

== ENCOUNTER 2023-12-16 11:32 | Outpatient (CLI) | payer MEDICARE, OTHER, SELFPAY ==
--- NOTE | ~2023-12-16 | XR_ITS ---
Right Knee Technique: AP, lateral, and sunrise views were obtained. Clinical History: Pain COMPARISON: 08/24/2023 Findings: No fracture or dislocation is seen. Osseous alignment is anatomic. Moderate tricompartmenta l degenerative spurring present. Soft tissues are unremarkable. No joint effusion is seen. Impression: Moderate tricompartmental degenerative spurring. Reviewed, dictated and finalized at location . Impression: Moderate tricompartmental degenerative spurring.
== END 2023-12-16 11:33 | disposition home or self-care (01) ==
PROVIDERS: PCP Family Medicine; Visit Provider Orthopaedic Surgery
DX: M17.11 Unilateral primary osteoarthritis, right knee (principal)
CPT/HCPCS: 73564

== ENCOUNTER 2024-01-19 09:58 | Outpatient (CLI) | payer MEDICARE, OTHER, SELFPAY ==
[2024-01-19 13:11] LABS: Basophils Absolute Auto 0.1 K/mm3 (0.0-0.1); Eosinophils Absolute Auto 0.2 K/mm3 (0-0.3); Eosinophils Percent Auto 2.8 % (0-4.4); Hematocrit 45.6 % (37.0-47.0); Hemoglobin 15.3 g/dL (12.0-15.0); Immature Granulocyte Absolute 0.01 K/mm3 (0.00-0.031); Immature Granulocyte Percent A 0.2 % (0-0.5); Lymphocytes Absolute Auto 2.09 K/mm3 (0.9-3.2); Lymphocytes Percent Auto 34.5 % (18.3-44.2); Mean Corpuscular HGB Conc 33.6 g/dl (32-36); Mean Corpuscular Hemoglobin 30.9 pg (26-34); Mean Corpuscular Volume 92.1 fl (80-100); Mean Platelet Volume 10.3 fl (7.4-10.4); Monocytes Absolute Auto 0.5 K/mm3 (0.1-0.6); Monocytes Percent Auto 8.6 % (2.6-8.5); Neutrophils Absolute Auto 3.2 K/mm3 (1.3-6.7); Neutrophils Percent Auto 52.9 % (45.5-73.1); Platelet Count Result 255 k/mm3 (150-375); Red Blood Count 4.95 M/mm3 (4.2-5.4); Red Cell Distribution Width 14.3 % (11.5-14.5); White Blood Count 6.1 K/mm3 (4.5-10.0)
[2024-01-19 13:39] LABS: Alanine Aminotransferase 41 U/L (6-35); Albumin Level 4.2 g/dL (3.5-5.1); Alkaline Phosphatase 117 U/L (38-126); Anion Gap 8 mmol/L (4-12); Aspartate Amino Transferase 73 U/L (14-36); Bilirubin,Total 0.7 mg/dL (0.2-1.3); Blood Urea Nitrogen 17 mg/dL (7-17); Calcium 9.7 mg/dL (8.4-10.2); Carbon Dioxide 28 mmol/L (22-30); Chloride 100 mmol/L (98-107); Estimated Glomerular Filt Rate > 60; Glucose 108 mg/dL (65-110); Potassium 3.8 mmol/L (3.4-5.0); Sodium 136 mmol/L (137-145)
[2024-01-19 14:42] LABS: Hemoglobin A1C 6.1 % (<5.7)
== END 2024-01-19 09:59 | disposition home or self-care (01) ==
PROVIDERS: PCP Family Medicine; Visit Provider Family Medicine
DX: E78.5 Hyperlipidemia, unspecified (principal); I10 Essential (primary) hypertension; R73.03 Prediabetes
CPT/HCPCS: 36415; 80053; 83036; 85025

== ENCOUNTER 2024-01-19 10:10 | Outpatient (CLI) | payer MEDICARE, OTHER, SELFPAY ==
--- NOTE | ~2024-01-19 | XR_ITS ---
EXAMINATION: XR chest 2V 01/19/2024 10:25 INDICATION: Chronic cough PROCEDURE: 2 view chest COMPARISON: No prior studies for comparison. FINDINGS: The lungs are clear. The cardiomediastinal silhouette is within normal limits. There are no pleural effusions. There is no pneumothorax suspected. IMPRESSION: 1: NO ACUTE CARDIOPULMONARY DISEASE. Reviewed, dictated and finalized at location B.
== END 2024-01-19 10:11 ==
PROVIDERS: PCP Family Medicine; Visit Provider Family Medicine
DX: R05.3 Chronic cough (principal)
CPT/HCPCS: 71046

== ENCOUNTER 2024-02-18 10:02 | Outpatient (RCR) | payer MEDICARE, OTHER, SELFPAY ==
--- NOTE | 2024-02-18 11:33 | OTOPEVDC ---
Assessment and note entered by Curt Borjas, ROMEO/Cady, CHT Evaluation Information & Discharge Summary 02/18/24 Diagnosis Pain in right finger, Ganglion right hand Subjective Information Patient is s/p right middle finger DIP joint ulnar collateral ligament repair. The repair unfortunately failed, patient reports a miscommunication in post op splinting education. Her PCP referred her to OT. She reports experiencing very little functional limitations. She reports she is right handed and is able to use her hand for daily tasks. She is experiencing little to no pain. She reports her finger can become painful if bumped on the ulnar side of the DIP joint. Reported Pain Level Pain Score 0: Self Report Additional Pain Score Comments Patient has no pain at rest. Reporting very minimal pain with ROM, just feelings of clicking Assessment OT Clinical Summary Patient referred to OT with pain in her right middle DIP joint. She presents with intact functional ROM. She reports experiencing no functional limitations at this time. Issued ROM HEP and discussed the benefits of maintenance when it comes to arthritic hands. Educated on the types of splints she could try if there is a flair up in pain or if she knows she'll be using her hands for a heavy task. Educated on the benefits of heat treatment, such as paraffin wax. She verbalizes excellent understanding of all materials. At this time she is not interested in further follow up. Discharging OT with patient independent with all materials. Plan of Care OT Services Indicated No
== END 2024-02-18 16:28 | disposition home or self-care (01) ==
LOC: ANHOT 10:02
PROVIDERS: PCP Family Medicine; Visit Provider Family Medicine
DX: M79.644 Pain in right finger(s) (principal); M67.441 Ganglion, right hand
CPT/HCPCS: 97018; 97165; 97760

== ENCOUNTER 2024-05-08 09:54 | Outpatient (CLI) | payer MEDICARE, OTHER, SELFPAY ==
--- NOTE | ~2024-05-08 | MM_ITS ---
EXAMINATION: MM screening vee BI w jamie HISTORY: Screening TECHNIQUE: Craniocaudal and mediolateral oblique 3-D tomosynthesis images were obtained and synthetic 2-D images were generated. CAD analysis was submitted and interpreted. COMPARISON: Comparison to multiple prior studies sequentially, with oldest reviewed study dated 03/01. BREAST PARENCHYMAL COMPOSITION: Not dense: There are scattered areas of fibroglandular density. FINDINGS: There is no evidence of suspicious mass, calcification, or architectural distortion to sugg est malignancy in either breast. There has been no suspicious interval change. IMPRESSION: 1. No mammographic evidence of malignancy. 2. Recommend routine screening mammography in one year. BI-RADS Category 1: Negative Reviewed, dictated and finalized at location B. ICAL MANAGER
== END 2024-05-08 09:55 | disposition home or self-care (01) ==
LOC: ANHIMG 09:56
PROVIDERS: PCP Family Medicine; Visit Provider Family Medicine
DX: Z12.31 Encounter for screening mammogram for malignant neoplasm of breast (principal)
CPT/HCPCS: 77063; 77067

== ENCOUNTER 2024-08-03 08:12 | Outpatient (CLI) | payer MEDICARE, OTHER, SELFPAY ==
[2024-08-03 12:41] LABS: Basophils Absolute Auto 0.1 K/mm3 (0.0-0.1); Basophils Percent Auto 1.2 % (0.2-1.2); Eosinophils Absolute Auto 0.2 K/mm3 (0-0.3); Eosinophils Percent Auto 2.7 % (0-4.4); Hematocrit 45.7 % (37.0-47.0); Hemoglobin 15.1 g/dL (12.0-15.0); Immature Granulocyte Absolute 0.02 K/mm3 (0.00-0.031); Immature Granulocyte Percent A 0.3 % (0-0.5); Lymphocytes Percent Auto 35.4 % (18.3-44.2); Mean Corpuscular Hemoglobin 30.4 pg (26-34); Mean Corpuscular Volume 92.1 fl (80-100); Mean Platelet Volume 10.2 fl (7.4-10.4); Monocytes Absolute Auto 0.5 K/mm3 (0.1-0.6); Monocytes Percent Auto 9.1 % (2.6-8.5); Neutrophils Absolute Auto 3.1 K/mm3 (1.3-6.7); Neutrophils Percent Auto 51.3 % (45.5-73.1); Platelet Count Result 276 k/mm3 (150-375); Red Blood Count 4.96 M/mm3 (4.2-5.4); Red Cell Distribution Width 14.3 % (11.5-14.5); White Blood Count 5.9 K/mm3 (4.5-10.0)
[2024-08-03 13:24] LABS: Alanine Aminotransferase 49 U/L (6-35); Albumin Level 4.1 g/dL (3.5-5.1); Alkaline Phosphatase 122 U/L (38-126); Anion Gap 9 mmol/L (4-12); Aspartate Amino Transferase 73 U/L (14-36); Bilirubin,Total 0.8 mg/dL (0.2-1.3); Blood Urea Nitrogen 18 mg/dL (7-17); Calcium 9.2 mg/dL (8.4-10.2); Carbon Dioxide 27 mmol/L (22-30); Chloride 99 mmol/L (98-107); Cholesterol 159 mg/dL (0-200); Estimated Glomerular Filt Rate > 60; Glucose 108 mg/dL (65-110); HDL Direct 51 mg/dL; Sodium 135 mmol/L (137-145); Triglycerides 186 mg/dL (<150)
[2024-08-03 13:35] LABS: LDL Cholesterol Direct 67 mg/dL
[2024-08-03 14:10] LABS: Hemoglobin A1C 6.1 % (<5.7)
[2024-08-03 21:27] LABS: Vitamin D 25 Hydroxy 34.9 ng/mL
== END 2024-08-03 08:13 | disposition home or self-care (01) ==
LOC: ANHGOSHLAB 08:13
PROVIDERS: PCP Family Medicine; Visit Provider Family Medicine
DX: E78.5 Hyperlipidemia, unspecified (principal); I10 Essential (primary) hypertension; E53.8 Deficiency of other specified B group vitamins; Z00.00 Encounter for general adult medical examination without abnormal findings; R73.03 Prediabetes; E55.9 Vitamin D deficiency, unspecified
CPT/HCPCS: 36415; 80053; 80061; 82306; 82607; 83036; 84443; 85025

== ENCOUNTER 2025-02-07 11:31 | Outpatient (CLI) | payer MEDICARE, OTHER, SELFPAY ==
--- OUTSIDE RECORDS SUMMARY | 2025-02-07 12:35 | XMS_ITS | Encounter Summary ---
Author Organization [facility] Address [address] [place] [address] Care Team Providers Care Ferry Captain Name Role Phone Dee Light MD Primary Care Provider Encounter Details Date Type Department Care Team (Late st Contact Info) Description 03/20/2021 Lab Requisition [facility] [address] [facility] [place] [address] Scott Stewart MD [address] [place] [address] Social History Tobacco Use Types Packs/Day Years Used Date Smoking Tobacco: Never Assessed Comments Unknown Sex and Gender Information Value Date Recorded Sex Assigned at Not on file Legal Sex Female 4:14 AM CDT Gender Identity Not on file Sexual Orientation Not on file documented as of this encounter Plan of Treatment Not on file documented as of this encounter Procedures Procedure Name Priority Date/Time Associated Diagnosis Comments DERMPATH SLIDE CONSULT Routine 03/20/2021 12:00 AM CDT documented in this encounter Results * DERMPATH SLIDE CONSULT (03/20/2021 12:00 AM CDT) Case Report Dermatopathology Report Case: [id number] Authorizing Provider: Scott Stewart MD Collected: 03/20/2021 12:00 AM Ordering Location: [facility] Received: 03/20/2021 09:36 AM Pathologist: Don Randle MD Specimen: Slide(s), Left posterior upper leg, [id number]# [id number] 10:31 AM CDT DERMATOPATHOLOGY LABORATORY Final Diagnosis Specimen A. 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 Scott Stewart, a consult will be performed on 8 (H&E, Merline A) slide(s) labeled [id number]. Superficial spreading melanoma. All slides returned. Any additional sections, special stains or immunohistochemical stains performed by our laboratory will be kept here on file. 10:31 AM [facility] Microscopic Description Specimen A. Slide(s), Left posterior upper leg, OSC# [id number]: There is a proliferation melanocytes distributed in an irregular pattern singly and in nests at all levels of the epidermis, which are highlighted on a MART-1/Melan A in blocks A1 and A2. The provided [place]-1 is reviewed. In the dermis there are irregular nests and single scattered melanocytes. Melanoma in situ is present at one tip margin of the specimen. 10:31 AM [facility] Disclaimer An external and internal positive and negative controls are appropriate for the histochemical, immunohistochemical and immunofluorescence stain(s) in this case (if any), except where stated explicitly. The performance characteristics of the stain(s) cited in this report were developed and its performance characteristic determined by the Dermatopathology Laboratory at [facility], directed by Dr. Guero Randle. These tests need not be, and therefore are not, approved by the [place] Food and Drug Administration. The tests are used for clinical purposes. Billing Codes Specimen Charges Stain Charges 18924 1 39229 1 10:31 AM [facility] Synoptic Report MELANOMA OF THE SKIN: Biopsy Skin.Melanoma - All Specimens 8th Edition - Protocol posted: 09/27/2019 SPECIMEN Procedure: excision Specimen Laterality: Left TUMOR Tumor Site: Skin of upper limb and shoulder: left posterior upper leg Histologic Type: Superficial spreading melanoma (low-cumulative sun damage (CSD) melanoma) Maximum Tumor (Breslow) Thickness (Millimeters): At least: 0.4 mm : tumor is present at the surgical margin, therefore, the final depth may exceed the current one. Ulceration: Not identified Anatomic (Lake) Level: III (melanoma fills and expands papillary dermis) Mitotic Rate: None identified Microsatellite(s): Not identified Lymphovascular Invasion: Not identified Neurotropism: Not identified Tumor-Infiltrating Lymphocytes: Present, nonbrisk Tumor Regression: Not identified MARGINS: Peripheral Margins: Negative for invasive melanoma Status of Melanoma in situ at Peripheral Margins: Melanoma in situ present at margin Deep Margin: Negative for invasive melanoma Status of Melanoma in situ at Deep Margin: Negative for melanoma in situ PATHOLOGIC STAGE CLASSIFICATION (pTNM, AJCC 8th Edition): Primary Tumor (pT): pT1a Comment(s) Comment(s): This case was also reviewed by Dr. Marzena Toth, who agrees. 10:31 AM CDT DERMATOPATHOLOGY LABORATORY Embedded Images 10:31 AM CDT DERMATOPATHOLOGY LABORATORY Pathology/Cytolog y SLIDE / Unknown 03/20/2021 03/20/2021 9:36 AM CDT Scott Stewart MD LAB - PATHOLOGY/CYTOLOGY ORDER DICKSON Final Result DERMATOPATHOLOGY LABORATORY [facility] - Department of Dermatology [address], [address] [phone] documented in this encounter Visit Diagnoses Not on filedocumented in this encounter Care Teams Ferry Captain Relationship Specialty Start Date End Date Dee Light MD [address] [place] [id number] PCP - General 03/21/21 documented as of this encounter
--- OUTSIDE RECORDS SUMMARY | 2025-02-07 12:35 | XMS_ITS | Clinical Summary ---
Author Organization [facility] Address [address] [facility] [address] Care Team Providers Care Creping Machine Operator Helper Name Role Phone Dee Light MD Primary Care Provider Source Comments [facility],non-owned Affiliates and Associated Physician Practices is amultiple site organization consisting of ambulatory clinics and hospital sitesin [place], [place], [place] and [place]. This disclosure is being madepursuant to the Care Everywhere program and may not contain all information available regarding this patient. Last updated 18.[facility] Social History Tobacco Use Types Packs/Day Years Used Date Smoking Tobacco: Never Assessed Comments Unknown Sex and Gender Information Value Date Recorded Sex Assigned at Not on file Legal Sex Female 4:14 AM CDT Gender Identity Not on file Sexual Orientation Not on file Plan of Treatment Health Maintenance Due Date Last Done Comments BONE DENSITY TESTING 1950 COLOGUARD (AGES 45-75) - COL ON CA SCREENING 1950 COLON MONITORING 1950 COLONOSCOPY - COLON CA SCREENING 1950 CT COLONOGRAPHY - COLON CA SCREENING 1950 Colorectal Cancer Screening 1950 FIT - COLON CA SCREENING 1950 FLEX SIG - COLON CA SCREENING 1950 LIPID TESTING 1950 MAMMOGRAM 1950 MEDICARE AWV 12 MONTHS 1950 HEPATITIS C SCREENING 11/25/1969 DTAP/TDAP/TD VACCINES (1 - Tdap) 11/29/1970 PNEUMOCOCCAL VACCINE 50+ (1 of 1 - PCV) 11/29/2001 ZOSTER VACCINE (1 of 2) 11/29/2001 COVID-19 VACCINE ( - 2023-2 5 season) 2024 DEPRESSION SCREENING 05/31/2024 INFLUENZA VACCINE (#1) 2025 Respiratory Syncytial Virus (RSV) Vaccine Pt: or over 60 yrs (1 - 1-dose 75+ series) 11/29/2026 HEPATITIS B VACCINE Aged Out No longe r eligible based on patient's age to complete this topic HIB VACCINE Aged Out No longer eligi ble based on patient's age to complete this topic HPV VACCINE Aged Out No longer eligi ble based on patient's age to complete this topic MENINGOCOCCAL (Group B) VACC INE SHARED DECISION-MAKING Aged Out No longer eligibl e based on patient's age to complete this topic MENINGOCOCCAL GROUPS A/C/Y/W VACCINE Aged Out No longer eligible b ased on patient's age to complete this topic Insurance MEDICARE MEDICARE [facility] MEDICARE MEDICARE [facility] Care Teams Creping Machine Operator Helper Relationship Specialty Start Date End Date Dee Light MD [address] [place] [address] PCP - General 03/21/21
--- OUTSIDE RECORDS SUMMARY | 2025-02-07 12:35 | XMS_ITS | Clinical Summary ---
Author Organization [facility] Address [address] [place] [address] Care Team Providers Care Senior Support Analyst Name Role Phone Dee Light MD Primary Care Provider Allergies Active Allergy Reactions Criticality Noted Date Comments Adhesive Rash Medium 07/23/2020 Erythromycin Base Diarrhea Low 07/23/2020 Medications oxybutynin XL (DITROPAN-XL) 10 mg 24 hr tablet oxybutynin chloride ER 10 mg tablet,extended release 24 hr TAKE 1 TABLET BY MOUTH DAILY Active FIBER, CALCIUM POLYCARBOPHIL, ORAL mg, 0 3 Active hydroCHLOROthia zide (HYDRODIURIL) 25 mg tablet Take 1 tablet (25 mg total) by mouth daily 3 Active losartan (COZAAR) 50 mg tablet Take 1 tablet (50 mg total) by mouth daily 3 Active metoprolol XL (TOPROL-XL) 25 mg extended release tablet Take 1 tablet (25 mg total) by mouth daily 3 Active atorvastatin (LIPITOR) 40 mg tablet Take 1 tablet (40 mg total) by mouth nightly at bedtime 3 Active Active Problems Problem Noted Date Diagnosed Date Left arm pain 01/28/2023 Hyperglycemia 07/23/2020 Hyperlipidemia 07/23/2020 Onychomycosis 07/23/2020 Osteopenia 07/23/2020 Rib pain 07/23/2020 Immunizations Immunization Administration Dates Next Due Influenza, Quad, Adjuvantated, Intramuscular Influenza, Quadrivalent, Spl it, Preservative Free, Intramuscular 04/24/2015 Influenza, Trivalent, High D ose, Split, Preservative Free, Intramuscular 02/18/2018,02/04/2017 Influenza, Trivalent, IM (MDV) 03/05/2015 Influenza, Trivalent, Preservative Free, Intramu scular 03/22/2016 MMR 11/23/2005,09/01/1990 Pfizer SARS-CoV-2 Monovalent Vaccination (12+ Yrs) PURPLE 07/11/2020 Pneumococcal Polysaccharide PPV23 05/31/2018 Pneumococcal, Unspecified 12/09/2017 Tdap 04/23/2020,04/01/2010 ZOSTER LIVE 05/31/2017 ZOSTER Recombinant 09/21/2018,07/11/2018 Surgical History Surgery Date Site/Laterality Comments CATARACT EXTRACTION DILATION AND CURETTAGE, DIAGNOSTIC / THERAPEUTIC Medical History Medical History Date Comments Diabetes mellitus (HCC) Hypercholesteremia Kidney stone Obesity Osteoporosis Sleep apnea Family History Medical History Relation Name Comments Gout Father Heart disease Father Heart disease Mother Hypertension Mother Relation Name Status Comments Father Mother Social History Tobacco Use Types Packs/Day Years Used Date Smoking Tobacco: Former Cigarettes 0.5 15 1 975 - 1989 Smokeless Tobacco: Never Tobacco Cessation:Counseling Given: Not Answered Personal Safety Answer Date Recorded Getting School Help Needed Not on file 07/26 Comments Unknown Sex and Gender Information Value Date Recorded Sex Assigned at Not on file Legal Sex Female 7:41 AM COUTIERIER Gender Identity Not on file Sexual Orientation Not on file Occupation Industry Job Start Date Job End Date retired Not on file Not on file Not on file Obstetrics History Last Filed Vital Signs Vital Sign Reading Time Taken Comments Blood Pressure 122/66 01/28/2023 2:00 PM CDT Pulse 75 01/28/2023 2:00 PM CDT Temperature 36.7 C (98 F) 01/28/2023 2:00 PM CDT Respiratory Rate 18 01/28/2023 2:00 PM CDT Oxygen Saturation 97% 01/28/2023 2:00 PM CDT Inhaled Oxygen Concentration - - Weight 88.5 kg (195 lb) 01/28/2023 2:00 PM CDT Height 162.6 cm (5' 4) 01/28/2023 2:00 PM CDT Body Mass Index 33.47 01/28/2023 2:00 PM CDT Plan of Treatment Health Maintenance Due Date Last Done Comments Breast Cancer Screening-Mammogram 1950 Colon Cancer Screening-Colonoscopy 1950 Depression Screening 1950 Fall Risk Assessment 1950 Hepatitis C Screening 1950 Osteoporosis Screening-Bone Density Scan 1950 Hepatitis B Screening 11/29/1969 Well Visit 65+ 11/29/2016 Pneumococcal vaccine 65+ (2 of 2 - PCV) 05/31/2019 05/31/2018, 12/09/2017 Covid-19 Vaccine (2 - 2024-2 6 season) 2025 07/11/2020 Influenza Vaccine (#1) 2025 , 02/18/2018, 02/04/2017, Additional history exists DTaP/Tdap/Td Vaccine (3 - Td or Tdap) 04/23/2030 04/23/2020, 04/01/2010 Zoster Vaccine Completed 09/21/2018, 07/01, 05/31/2017 Insurance [facility]ARE [employer] Care Teams Senior Support Analyst Relationship Specialty Start Date End Date Dee Light MD PCP - General Family Practice 07/18/20
--- OUTSIDE RECORDS SUMMARY | 2025-02-07 12:36 | XMS_ITS | Clinical Summary ---
Author Organization [facility] Address [address] [place] [address] Phone Care Team Providers Care Water Aerobics Instructor Name Role Phone Dee Light MD Primary Care Provider Allergies Active Allergy Reactions Criticality Noted Date Comments Adhesive Tape-Silicones Rash Low 12/26/2020 Erythromycin Diarrhea Low 12/26/2020 Medications OXYBUTYNIN CHLORIDE ORAL Take 10 mg by mouth. Active simvastatin (ZOCOR) 20 mg tablet Take 20 mg by mouth daily with supper. Active HYDROcodone-ghazala taminophen (NORCO) 5-325 mg tabletIndicatio ns:Left ureteral stone,Left sided abdominal pain Take 1 Tablet by mouth every 8 hours as needed for Pain, Severe. Max Daily Amount: 3 Tablets 15 Tablet 0 Active fluoride, sodium, (Denta 5000 Plus) 1.1 % Cream BRUSH WITH A PEA-SIZED AMOUNT ONCE DAILY- DO NOT RINSE, EAT, OR DRINK FOR 30 MINUTES AFTER USE. 51 Gram 3 02/10/2024 10:02 AM CDT 3 Active traMADoL (ULTRAM) 50 mg tablet Take one tablet (50 mg) orally every 6 hours As Needed for pain 8 Tablet 4 Active diclofenac potassium (CATAFLAM) 50 mg Tablet Take 1 Tablet (50 mg) by mouth 2 times daily. 60 Tablet 1 11/03/2023 2:27 PM CDT 4 Active valACYclovir (VALTREX) 1 gram tablet Take 1 Tablet (1,000 mg) by mouth 3 times daily. 21 Tablet 02/12/2024 9:21 AM CDT 4 Active fluticasone propionate (FLONASE) 50 mcg/spray [place], Suspension nasal inhaler ADMINISTER 2 SPRAYS IN EACH NOSTRIL ONCE DAILY. 16 Gram 03/06/2024 11:44 AM CDT 4 Active mometasone (ELOCON) 0.1 % Ointment Apply once a day to neck for 1-2 weeks 45 Gram 1 05/12/2024 9:19 AM CHANNEL SALES DIRECTOR 4 Active neomycin-polymy robert-dexAMETHaso ne (MAXITROL) 3.5 mg/g-10,000 unit/g-0.1 % ointment Apply to eye and incision every 4 hours for 24 hours after surgery, then once nightly to eye and three times daily to incision for 10 days post-op, then stop. 3.5 Gram 3 07/07/2024 11:21 AM CHANNEL SALES DIRECTOR 5 Active HYDROcodone-ghazala taminophen (NORCO) 5-325 mg tablet Take 1 Tablet by mouth every 6 hours as needed. Max Daily Amount: 4 Tablets 10 Tablet 07/07/2024 11:21 AM CHANNEL SALES DIRECTOR 5 Active metroNIDAZOLE (METROCREAM) 0.75 % Cream APPLY TO THE AFFECTED AREAS 1-2 TIMES DAILY NEEDED. 45 Gram 12 08/21/2024 3:44 PM CDT 5 Active atorvastatin (LIPITOR) 40 mg tablet Take 1 Tablet (40 mg) by mouth daily at bedtime. 90 Tablet 3 01/04/2025 3:36 PM CDT 5 Active metoprolol succinate (TOPROL XL) 25 mg Extended Release 24 hour tablet Take 1 Tablet (25 mg) by mouth daily. 90 Tablet 3 01/04/2025 3:36 PM CDT 5 Active hydroCHLOROthia zide 25 mg tablet Take 1 Tablet (25 mg) by mouth daily. 90 Tablet 3 01/04/2025 3:36 PM CDT 5 Active oxyBUTYnin (DITROPAN XL) 10 mg Extended Release 24 hour tablet Take 1 Tablet (10 mg) by mouth daily. 90 Tablet 1 01/04/2025 3:36 PM CDT 5 Active diclofenac potassium (CATAFLAM) 50 mg Tablet Take 1 Tablet (50 mg) by mouth 2 times daily as needed. 90 Tablet 1 5 Active Encounters Date Type Department Care Team Description 02/06/2025 External Device Data [facility] ABSTRACTION Provider, Abstract 01/30/2025 External Device Data [facility] ABSTRACTION Provider, Abstract 01/17/2025 External Device Data [facility] ABSTRACTION Provider, Abstract 11/21/2024 External Device Data [facility] ABSTRACTION Provider, Abstract from Last 3 Months Social History Tobacco Use Types Packs/Day Years Used Date Smoking Tobacco: Former Alcohol Use Standard Drinks/Week Comments Never 0 (1 standard drink = 0.6 oz pur e alcohol) Comments Unknown Sex and Gender Information Value Date Recorded Sex Assigned at Not on file Legal Sex Female 8:53 AM CDT Gender Identity Not on file Sexual Orientation Not on file Last Filed Vital Signs Vital Sign Reading Time Taken Comments Blood Pressure 159/79 12/26/2020 6:46 PM CDT Pulse 68 12/26/2020 6:46 PM CDT Temperature 36.3 C (97.4 F) 11/16/2019 8:56 AM CDT Respiratory Rate 16 12/26/2020 6:46 PM CDT Oxygen Saturation 97% 12/26/2020 6:46 PM CDT Inhaled Oxygen Concentration - - Weight 89.8 kg (198 lb) 12/26/2020 10:34 AM CDT Height 160 cm (5' 3) 12/26/2020 10:34 AM CDT Body Mass Index 35.07 12/26/2020 10:34 AM CDT Plan of Treatment Health Maintenance Due Date Last Done Comments BREAST CANCER SCREENING 1991 COLORECTAL SCREENING 11/29/1996 Colorectal Cancer Screening 11/29/1996 FIT-DNA Q 3 years 11/29/1996 FIT/FOBT Q 1 year 11/29/1996 Flex Sig/CT Colonography Q 5 years 11/29/1996 ZOSTER VACCINE (1 of 2) 11/29/2001 OSTEOPOROSIS SCREENING 11/29/2016 PNEUMOCOCCAL VACCINE 50+ YEA RS (2 of 2 - PCV) 05/31/2019 05/31/2018 INFLUENZA VACCINE (#1) 2024 8, 02/04/2017, 02/04/2017, Additional history exists COVID-19 Vaccine (2 - 2024-2 6 season) 2025 07/11/2020 RSV VACCINE (60+ or ) (1 - 1-dose 75+ series) 11/29/2026 DTAP/TDAP/TD VACCINES (3 - T d or Tdap) 04/23/2030 04/23/2020, 04/01/2010 Insurance [facility] RX OPTUM RX Member Subscriber Plan / Payer (Ef fective 2022-Present) Name:Cora Prajapati Relation to Subscriber:Self Name:Alo Cora Payer ID:Not on file Group ID:[id number] Type:RX Commercial Address: [place] RX [employer] PLANS (INTERNAL) [facility] Care Teams Water Aerobics Instructor Relationship Specialty Start Date End Date Dee Light MD [address] [place] [phone] PCP - General Family Practice 12/26/20
[2025-02-07 13:03] LABS: Alanine Aminotransferase 46 U/L (6-35); Albumin Level 4.1 g/dL (3.5-5.1); Alkaline Phosphatase 116 U/L (38-126); Anion Gap 6 mmol/L (4-12); Aspartate Amino Transferase 50 U/L (14-36); Bilirubin,Total 0.4 mg/dL (0.2-1.3); Blood Urea Nitrogen 18 mg/dL (7-17); Calcium 9.3 mg/dL (8.4-10.2); Carbon Dioxide 31 mmol/L (22-30); Chloride 97 mmol/L (98-107); Estimated Glomerular Filt Rate > 60; Glucose 99 mg/dL (65-110); Potassium 3.8 mmol/L (3.4-5.0); Sodium 134 mmol/L (137-145); Total Protein 6.9 g/dL (6.3-8.2)
[2025-02-07 13:52] LABS: Hemoglobin A1C 6.2 % (<5.7)
== END 2025-02-07 11:32 | disposition home or self-care (01) ==
LOC: ANHGOSHLAB 11:31
PROVIDERS: PCP Family Medicine; Visit Provider Family Medicine
DX: R73.03 Prediabetes (principal); I10 Essential (primary) hypertension
CPT/HCPCS: 36415; 80053; 83036

== ENCOUNTER 2025-03-13 08:40 | Outpatient (CLI) | payer MEDICARE, OTHER, SELFPAY ==
--- OUTSIDE RECORDS SUMMARY | 2019-11-29 08:20 | XMS_ITS | Continuity of Care Document ---
Author Organization [facility] Address [address] [place] [address] Phone Care Team Providers Care Back End Developer Name Role Phone Hollie SILVESTRE, Chago Unavailable Unavailable Allergies, Adverse Reactions, Alerts Substance Reaction Status Criticality erythromycin base Active No Informa tion Medications Medication Instructions Dosage Effective Dates (start - stop) Status Comments simvastatin 20 mg tablet take 1 tablet by oral route every day in the evening 20 MG - Active oxybutynin chloride ER 10 mg tablet,extended release 24 hr take 1 tablet by oral route every day 10 MG - Active Flomax 0.4 mg capsule take 1 capsule by oral route every day 1/2 hour following the same meal each day 0.4 MG - Active Procedures Procedure Date URINALYSIS, DIPSTICK (UA) - Office Lab J OFFICE [id number] OFFICE [id number] Results Test Name Date and Time Measure Units Reference Range Abnormal Flag Status Comments Panel Description: UA- Dipstick (office Lab) Fi nal Color (U) Yellow YELLOW STRAW Final Appearance (U) Clear CLEAR Final Glucose (U) Negative NEGATIVE Final Bilirubin (U) Negative NEGATIVE Final Ketones (U) Negative NEGATIVE Final Specific Commerce 1.015 1.001 - 1.035 F inal Blood (U) Negative NEGATIVE Final pH (U) 5 5 - 8 Final Protein (U) Negative NEGATIVE Final Urobilinogen (U) 0.2 mg/dL 0.2 - 1 Final Nitrite (U) Negative NEGATIVE Final Leukocyte Esterase (U) Negative NEGATIVE Final Advance Directives Directive Yes / No Effective Date File Name No Information Encounters Encounter Description Practice Location Reason(s) For Visit Diagnoses Date Provider Providers Copied on Encounter OFFICE [id number] NDELenore [employer], [address], [place], [place], [id number], tel:[phone] [facility] [place] kidney stones (chief complaint) Kidney stone Hollie Anders. [address], [place], [address], . tel:[phone] Referring Provider: [place], [address]. tel:[phone] [employer], [address], [place], [place], [id number], tel:[phone] Urology [facility] No Information Hollie Anders. [address], [place], [address], . tel:[phone] OFFICE [id number] LISA [employer], [address], [place], [place], [id number], tel:[phone] Urology [facility] kidney stones (chief complaint) Calculus of distal left ureter Hollie Anders. [address], [place], [address], . tel:[phone] Referring Provider: Salma Ventura, [place], [address]. tel:[phone] Family History Family Member Type Diagnosis Age At Onset No Information Payers Payer name Insurance type Covered alliance party ID Brie angel(s) MEDICARE MB [id number] [facility] [id number] Social History Type Description Quantity Date Captured Comments Alcohol Use Details Unknown Caffeine Use Details Unknown Tobacco Use Status No Information Smoking Status No Information Sex Female Chief Complaint And Reason For Visit From encounter dated '11/29/2019 13:20'. kidney stones (chief complaint) Reason For Referral Reason For Referral No Information Plan Of Treatment Date Type Action Status Referral Ordered: KUB ([id number]) x-ray ordered History Of Present Illness Encounter Date Complaint History Of Prese nt Illness kidney stones kidney stones (comments) [employer] with recent 3 mL distal left stone. Patient asymptomatic. Urinalysis clear. KUB reviewed and negative. No urgency frequency hematuria or cystitis. kidney stones (comments) Patient presents for evaluation of nephrolithiasis. Patient in the [facility] emergency room last week. 3 mm distal left stone. On oxybutynin for over active bladder. No fevers, chills, dysuria. Non-smoker. No family history of stone disease. kidney stones Functional Status Date Functional Assessmen t No Information Instructions Date Instruction Additional Infor mation KUB negative. Recomm end a stone protocol CT scan if more symptoms. I believe patient has passed her stone. Related to Kidney stone I recommend Flomax, aggressive hydration a KUB next week. Related to Calculus of distal left ureter Assessments Type Assessment Date assessment Kidney stone Patient Care Teams Name Effective Dates (start - stop) Status Members No Information
--- OUTSIDE RECORDS SUMMARY | 2025-01-09 04:00 | XMS_ITS | Continuity of Care Document ---
Author Organization [facility] Address [address] [facility] [address] [place] [address] Phone Care Team Providers Care Coating Machine Operator Helper Name Role Phone Albin OD, Dimas Unavailable Unavailable Allergies, Adverse Reactions, Alerts Substance Reaction Status Criticality adhesive tape Active No Information erythromycin base Active No Informa tion Medications Medication Instructions Dosage Effective Dates (start - stop) Status Comments metoprolol succinate ER 25 mg tablet,extended release 24 hr take 1 tablet by oral route every day 25 MG - Active atorvastatin 40 mg tablet take 1 tablet by oral route every day 40 MG - Active calcium 1200 mg BUCCAL ADH. PATCH - Active hydrochlorothiazide 25 mg tablet take 1 tablet by oral route every day 25 MG - Active oxybutynin chloride ER 10 mg tablet,extended release 24 hr take 1 tablet by oral route every day 10 MG - Active multi-vitamins BUCCAL ADH. PATCH - Active Fiber-Tabs 625 mg tablet - Activ e losartan 50 mg tablet take 1 tablet by oral route every day 50 MG - No Longer Active atorvastatin 20 mg tablet take 1 tablet by oral route every day 20 MG - No Longer Active Procedures Procedure Date REFRACTION FUNDUS PHOTOGRAPHY CL Exam Level 1 C EYE EXAM & TREATMENT REFRACTION FUNDUS PHOTOGRAPHY CL Exam Level 1 C EYE EXAM & TREATMENT FUNDUS PHOTOGRAPHY REFRACTION CL Exam Level 1 C OFFICE/OUTPATIENT VISIT, EST REFRACTION FUNDUS PHOTOGRAPHY CL Exam Level 1 C EYE EXAM & TREATMENT CL Check CL Check CL Exam Level 1 C FUNDUS PHOTOGRAPHY EYE EXAM, NEW PATIENT REFRACTION Results Test Name Date and Time Measure Units Reference Range Abnormal Flag Status Commen ts Panel Description: [id number] Final Image Zeiss Result 1 Panel Description: [id number] Final Image Zeiss Result 2 Advance Directives Directive Yes / No Effective Date File Name No Information Encounters Encounter Description Practice Location Reason(s) For Visit Diagnoses Date Provider Providers Copied on Encounter [facility], [address] [place] [address], [id number], tel:[phone] [facility] Blurry vision (chief complaint) PrediabetesBilat eral vitreous detachment of eyesAge-related reticular degeneration of retina, bilateralPresenc e of pseudophakiaPres byopia 5 Albin Cochran. [address] [place], [place], [id number] , [place]. tel:[phone] Referring Provider: Cayetano Ellis, [address], [address]. tel:[phone] [facility], [address] [place] [address], [id number], tel:[phone] [facility] Diabetic eye exam (chief complaint) Blurry vision (chief complaint) PrediabetesBilat eral vitreous detachment of eyesAge-related reticular degeneration of retina, bilateralPresenc e of pseudophakiaPres byopia 4 Albin Cochran. [address] [place], [place], [id number] , [place]. tel:[phone] Referring Provider: Alban Coffey, [address] [place], [address]. tel:[phone] OFFICE/OUTPA TIENT VISIT, EST [facility], [address] [place] [address], [id number], [place] tel:[phone] [facility] Diabetic eye exam (chief complaint) blurry vision (chief complaint) Bilateral vitreous detachment of eyesAge-related reticular degeneration of retina, bilateralPresenc e of pseudophakiaPres byopiaPrediabete s 3 Albin Cochran. [address] [place] [address], [id number] , [place]. tel:[phone] Referring Provider: Dimas Talamantes, [address] [place] [address], [id number] . tel:[phone] [facility], [address] [place] [address], [id number], tel:[phone] [facility] Blurry Vision (chief complaint) Diabetic Exam (chief complaint) Type 2 diabetes mellitus without complicationsBil ateral vitreous detachment of eyesAge-related reticular degeneration of retina, bilateralPresenc e of pseudophakiaPres byopia 2 Albin Cochran. [address] [place] [address], [id number] , [place]. [phone] Referring Provider: Dimas Talamantes, [address] [place] [address], [id number] . tel:[phone] [facility], [address] [place] [address], [id number], [place] tel:[phone] [facility] CL Check (chief complaint) Presbyopia 1 Albin Cochran. [address] [place] [address], [id number] , [place]. tel:[phone] Referring Provider: Cayetano Ellis, [address] [facility], [address], [address]. tel:[phone] [facility], [address] [place] [address], [id number], [place] tel:[phone] [facility] Blurry Vision (chief complaint) Presbyopia 1 Albin Cochran. [address] [place], [place], [id number] , . tel:[phone] Referring Provider: Cayetano Ellis, [address] [place] [address], [address], [address]. tel:[phone] [facility], [address] [place] [address], [id number], tel:[phone] [place] [address] [facility] CL's fog up (chief complaint) Diabetic eye exam (chief complaint) Presence of pseudophakiaType 2 diabetes mellitus without complicationsPre sbyopiaBilateral vitreous detachment of eyesAge-related reticular degeneration of retina, bilateral 1 Albin Cochran. [address] [place], [place], [id number] , . tel:[phone] Referring Provider: Cayetano Ellis, [address] [place] [address], [place] [address], [place], [address]. tel:[phone] [facility], [address] [place] [address], [id number], tel:[phone] [place] [address] [facility] No Information 1 Albin Cochran. [address] [place], [place], [id number] , . tel:[phone] Referring Provider: Cayetano Ellis, [address] [place] [address], [address], [address]. tel:[phone] Family History Family Member Type Diagnosis Age At Onset Maternal grandfather Problem Diabetes mellitus Maternal grandmother Problem cataract Mother Problem Cardiovascular disease Father Problem Cardiovascular disease Payers Payer name Insurance type Covered republican ID Brie angel(s) MEDICARE OF [place] MB [id number] [employer] Patient Communicator LIFE INS CO CI [id number] Social History Type Description Quantity Date Captured Comments Alcohol Use Details Caffeine Use Details Unknown Tobacco Use Status No Information Smoking Status Former smoker Non-Smoking Tobacco Use Details : No Details Available : No Details Available Sex Female Chief Complaint And Reason For Visit From encounter dated '01/09/2025 09:00'. Blurry vision (chief complaint). Description: The 74 year old patient presents for evaluation of Blurry vision in the right eye and left eye. For many years. patient reports blurry vision distance and near, some relief from CL's. OD distance, OS near. Pt states doesn't need to orderCL today, but would like a Rx.Pt denies FOL, floaters, pain, headaches, and distortion.Pt hx of pred iabetes, pt do to see Dr. Light. Pls send letter. Reason For Referral Reason For Referral No Information Plan Of Treatment Date Type Action Status Appointment Cora Prajapati BOOKED History Of Present Illness Encounter Date Complaint History Of Prese nt Illness Blurry vision The 74 year old patient presents for evaluation of Blurry vision in the right eye and left eye. For many years. patient reports blurry vision distance and near, some relief from CL's. OD distance, OS near. Pt states doesn't need to order CL today, but would like a Rx.Pt denies FOL, floaters, pain, headaches, and distortion.Pt hx of prediabetes, pt do to see Dr. Light. Pls send letter. Diabetic eye exam The 73 year ol d female presents for evaluation of Diabetic eye exam in the right eye and left eye. It started about 5 year(s) ago. It occurs all the time. The onset was gradual. The symptom is constant. The condition is stable.Current tx: diet and exerciseLast a1c: 5.8Last BS: 110 Blurry vision The patient is p resent for evaluation of Blurry vision in the right eye and left eye. It started about many year(s) ago. It occurs all the time. It affects near vision. The symptom is constant. Denies flashes, floaters, pain.Current type; MyDayReplacement: dailyAverage wear time: 14 hrsAverage sleep time: 0 hrs Diabetic eye exam The 72 year ol d female presents for evaluation of Diabetic eye exam in the right eye and left eye. Pt Dx pre-diabetes 2015. Pt see's Dr. Light for DM. Last visit was 6 months. A1C didn't get yet. Doesn't check BS. Vision is stable. blurry vision The patient is p resent for evaluation of blurry vision in the right eye and left eye. Pt reports vision is blurry for distance and near. Wears CL in OD for distance. Vision and Comfort is great. Blurry Vision The 70 year old female presents for evaluation of Blurry Vision in the right eye and left eye, for many years. Patient reports blurry vision distance, and near- relief from CL's and glasses. Patient reports some issues with putting the lens in I lose it, they fall out of my eye easily, I can't see it. Patient is happy with vision. Diabetic Exam The patient is p resent for evaluation of Diabetic Exam in the right eye and left eye, for many years. Patient reports last BS (does not check), last A1C 5.7. Patient sees Dr. Dee Light for diabetes. No meds, diet controlled. CL Check The 69 year old female presents for evaluation of CL Check in the right eye. Pt. has monovision, CL in OD for distance and nothing OS for near. Pt. states comfort when wearing contact lens and vision is clear. Pt. does state difficulty with insertion of CL but other than that has had no problems. Blurry Vision The 69 year old female presents for evaluation of Blurry Vision in the right eye and left eye. The onset was right eye and left eye. The symptom is intermittent. The condition is moderate. Pt has worn CL's since she was 13. Diabetic eye exam The patient is present for evaluation of Diabetic eye exam in the right eye and left eye. Pt see's Dr. Light forDM. Last visit was in July. A1c was 5.6 or 5.7. Doesn't check BS. Not on medicatiion. Diet and exercise. Condition is constant. CL's fog up The 69 year old female presents for evaluation of CL's fog up in the left > right. Pt reports immediately fogging up after putting them in. in [place] fit them 1.5-2 years ago. They've been fogging ever since. Pt doesn't wear that much anymore. Can't wear MF. 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, bilateral Impression/Plan Related to Bilat eral vitreous detachment of eyes Impression/Plan Related to Predi abetes Impression/Plan Related to Presb yopia Impression/Plan Related to Prese nce of pseudophakia Impression/Plan Related to 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 Talamantes for Optos and CL exam Related to Presbyopia Impression/Plan Related to Presb yopia rtn [address] Talamantes for C L CK Related to Presbyopia Impression/Plan Related to Presb yopia return 1-[address] 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 Indication: AODMReliability: goodFindings: No Diabetic retinopathyTherapeutic implications: Observe/ control BS and A1C assessment Bilateral vitreous detachment of eyes impression Bilateral vitreous d etachment of eyes: H43.813. Indication: Posterior vitreous detachmentReliability: goodFindings: Posterior vitreous detachment (PVD).Therapeutic implications: observe for signs and symptoms of retinal detachment. assessment Age-related reticular degenerati on of retina, bilateral impression Age-related reticula r degeneration of retina, bilateral: H35.443. Indication: Peripheral retinal findingsReliability: good. Findings: reticular degen degenerationTherapeutic implications: observe for retinal holes, tears, or detachments. assessment Presence of pseudophakia 2024 impression Presence of pseudophakia: Z96.1. assessment Presbyopia impression Presbyopia: H52.4. Patient Care Teams Name Effective Dates (start - stop) Status Members No Information
--- NOTE | ~2025-03-13 | DEXA_ITS ---
Bone Density Report Name: SVETLANA MARTINEZ Age: 74 Sex: Female Ethnicity: White Date of : 1950 Indication: postmenopausal; screening for osteoporosis; cancer; Referring Provider: DONAVAN NUNEZ Study: Bone densitometry was performed. Exam Date: March 13, 2025 Accession number: [id number] Bone Density: Region BMD T-score Z-score Classification AP Spine(L1, L3, L4) 1.432 3.4 5.8 Normal Femoral Neck (Left) 0.685 -1.5 0.5 Osteopenia Total Hip (Left) 1.140 1.6 3.3 Normal Femoral Neck (Right) 0.860 0.1 2.1 Normal Total Hip (Right) 1.181 2.0 3.6 Normal Total Hip Mean 1.161 1.8 3.5 Normal World Health Organization criteria for BMD impression classify patients as: Normal (T-score at or above -1.0), Osteopenia (T-score between -1.0 and -2.5), or Osteoporosis (T-score at or below -2.5). 10-year Fracture Risk(1): Major Osteoporotic Fracture 9.9% Hip Fracture 1.6% Reported Risk Factors: [place] (), Neck BMD=0.685, BMI=34.2 (1) FRAX(R) Version 3.08. Fracture probability calculated for an untreated patient. Fracture probability may be lower if the patient has received treatment. Clinical Information Provided by Patient: Has used the following medications: Vitamin D, Calcium Has the following medical conditions: Cancer Patient maximum height was 64 Menopause Age: 51 No regular weight bearing exercise Drinks caffeinated beverages Onset of menses at age 12 Number of children 2 Impression: The patient has low bone mass, based on the Left Femoral Neck T-score. The patient has an estimated ten-year risk of hip fracture of 1.6% and an estimated ten-year risk of major fracture of 9.9%, based on the WHO FRAX algorithm. Discussion: BONE DENSITY IS LOW AT ONE OR MORE SKELETAL SITES. This patient's lowest T-score is low at one or more skeletal sites. It meets the World Health Organization's (WHO) criteria for ?low bone mass? (T-score between -1.0 and -2.5). The patient's 10-year risk of fracture as calculated by FRAX is less than the threshold where pharmacological therapy is recommended by the National Osteoporosis Foundation (NOF). However, all treatment decisions require clinical judgment and consideration of individual patient factors, including patient preferences, comorbidities, previous drug use, risk factors not captured in the FRAX model (e.g., frailty, falls, vitamin D deficiency, increased bone turnover, interval significant decline in bone density) and possible under or overestimation of fracture risk by FRAX. The patient should follow a healthful lifestyle (good nutrition with adequate calcium and vitamin D, and appropriate weight-bearing exercise). Follow-Up: Consider repeating this study in 2 to 3 years to reassess this patient's status, or sooner if there is some new clinical indication. Reported by: STELLA on 03/13/2025 9:28:00 AM. Reviewed, dictated and finalized at location A.
--- OUTSIDE RECORDS SUMMARY | 2025-03-13 09:04 | XMS_ITS | Clinical Summary ---
Author Organization [facility] Address [address] [place] [address] Care Team Providers Care Co Supervisor Grounds And Landscape Name Role Phone Dee Light MD Primary Care Provider Source Comments [facility],non-owned Affiliates and Associated Physician Practices is amultiple site organization consisting of ambulatory clinics and hospital sitesin [place], [place], [place] and [place]. This disclosure is being madepursuant to the Care Everywhere program and may not contain all information available regarding this patient. Last updated 18.[facility] Social History Tobacco Use Types Packs/Day Years [...] 11/29/2001 ZOSTER VACCINE (1 of 2) 11/29/2001 DEPRESSION SCREENING 05/31/2024 COVID-19 VACCINE (2023-2 5 season) 2025 INFLUENZA VACCINE (#1) 2025 Respiratory Syncytial Virus [...] to complete this topic Insurance MEDICARE MEDICARE [facility] MEDICARE MEDICARE [facility] Care Teams Co Supervisor Grounds And Landscape Relationship Specialty Start Date End Date Dee Light MD [address] [place] [address] PCP - General 03/21/21
--- OUTSIDE RECORDS SUMMARY | 2025-03-13 09:04 | XMS_ITS | Clinical Summary ---
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 MEDICARE [facility] Care Teams Oil Lease Operator Relationship Specialty Start Date End Date Dee Light MD PCP - General Family Practice 07/18/20
--- OUTSIDE RECORDS SUMMARY | 2025-03-13 09:04 | XMS_ITS | Encounter Summary ---
Author Organization [facility] Address [address] [place] [address] Care Team Providers Care Customer Sales Advisor Name Role Phone Dee Light MD Primary Care Provider Encounter Details Date Type Department Care Team (Late st Contact Info) Description 03/20/2021 Lab Requisition [facility] [address] [place] [address] Scott Stewart MD [address] [place] [id number] Social History Tobacco Use Types Packs/Day [...] AM CDT) Case Report Dermatopathology Report Case: [id number] Authorizing Provider: Scott Stewart MD Collected: 03/20/2021 12:00 AM Ordering Location: [facility] Received: 03/20/2021 09:36 AM Pathologist: Don Randle MD Specimen: Slide(s), Left posterior upper leg, OSC# [id number] 10:31 AM CDT DERMATOPATHOLOGY LABORATORY Final Diagnosis Specimen A. 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 Scott Stewart, a consult will be performed on 8 (H&E, Merline A) slide(s) labeled [id number]. Superficial spreading melanoma. All slides returned. Any additional sections, special stains or immunohistochemical stains performed by our laboratory will be kept here on file. 10:31 AM [facility] DERMATOPATHOLOGY LABORATORY Microscopic Description Specimen A. Slide(s), Left posterior upper leg, OSC# [id number]: There is a proliferation melanocytes distributed in an irregular pattern singly and in nests at all levels of the epidermis, which are highlighted on a MART-1/Melan A in blocks A1 and A2. The provided [place]-1 is reviewed. In the dermis there are irregular nests and single scattered melanocytes. Melanoma in situ is present at one tip margin of the specimen. 10:31 AM [facility] DERMATOPATHOLOGY LABORATORY Disclaimer An external and internal positive and negative controls are appropriate for the histochemical, immunohistochemical and immunofluorescence stain(s) in this case (if any), except where stated explicitly. The performance characteristics of the stain(s) cited in this report were developed and its performance characteristic determined by the Dermatopathology Laboratory at [facility], directed by Dr. Guero Randle. These tests need not be, and therefore are not, approved by the [place] Food and Drug Administration. The tests are used for clinical purposes. Billing Codes Specimen Charges Stain Charges 68175 1 16594 1 10:31 AM [facility] DERMATOPATHOLOGY LABORATORY Synoptic Report MELANOMA OF THE [...] PATHOLOGY/CYTOLOGY ORDER DICKSON Final Result DERMATOPATHOLOGY LABORATORY [facility] - Department of Dermatology [address] [phone] documented in this encounter Visit Diagnoses Not on filedocumented in this encounter Care Teams Customer Sales Advisor Relationship Specialty Start Date End Date Dee Light MD [address] [place] [phone] PCP - General 03/21/21 documented as of this encounter
--- OUTSIDE RECORDS SUMMARY | 2025-03-13 09:05 | XMS_ITS | Clinical Summary ---
Author Organization [facility] Address [address] [place] [address] Phone Care Team Providers Care Elevator Runner Name Role Phone Dee Light MD Primary [...] 4 Active fluticasone propionate (FLONASE) 50 mcg/spray [place], Suspension nasal inhaler ADMINISTER 2 SPRAYS IN EACH NOSTRIL ONCE DAILY. 16 Gram 03/06/2024 11:44 AM CDT 4 Active mometasone (ELOCON) 0.1 % Ointment Apply once a day to neck for 1-2 weeks 45 Gram 1 05/12/2024 9:19 AM PHYSICAL AERODYNAMICIST 4 Active neomycin-polymy robert-dexAMETHaso ne (MAXITROL) 3.5 mg/g-10,000 unit/g-0.1 % ointment Apply to eye and incision every 4 hours for 24 hours after surgery, then once nightly to eye and three times daily to incision for 10 days post-op, then stop. 3.5 Gram 3 07/07/2024 11:21 AM PHYSICAL AERODYNAMICIST 5 Active HYDROcodone-ghazala taminophen (NORCO) 5-325 mg tablet Take 1 Tablet by mouth every 6 hours as needed. Max Daily Amount: 4 Tablets 10 Tablet 07/07/2024 11:21 AM PHYSICAL AERODYNAMICIST 5 Active metroNIDAZOLE (METROCREAM) 0.75 % Cream [...] times daily as needed. 90 Tablet 1 02/12/2025 10:48 AM CDT Active Sodium Fluoride (PreviDent 5000 Dry Mouth) 1.1 % Paste USE DIRECTED 100 mL 4 03/07/2025 4:06 PM CDT 5 Active Encounters Date Type Department Care Team Description 02/06/2025 External Device Data [facility] ABSTRACTION Provider, Abstract 01/30/2025 External Device Data [facility] ABSTRACTION Provider, Abstract 01/17/2025 External Device Data [facility] ABSTRACTION Provider, Abstract from Last 3 Months Immunizations Immunization Administration Dates Next Due (COMRINATY 2024-)(12YR UP) COVID-19 VACCINE, MRNA (PF)30 MCG/0.3 ML, IM SYRINGE 02/22/2025 INFLUENZA VACCINE HIGH DOSE TRIVALENT SPLIT VIRUS, (65 YR UP), 0.5ML (PF), IM 02/22/2025 Social History Tobacco Use Types Packs/Day Years [...] (2 of 2 - PCV) 05/31/2019 05/31/2018 COVID-19 Vaccine (3 - 2023-2 5 season) 2025 02/22/2025, 07/11/2020 RSV VACCINE (60+ or ) (1 - 1-dose 75+ series) 11/29/2026 DTAP/TDAP/TD VACCINES (3 - T d or Tdap) 04/23/2030 04/23/2020, 04/01/2010 INFLUENZA VACCINE Completed 02/22/2025, , 02/04/2017, Additional history exists Insurance MEDICARE PART A AND B [facility] RX [employer] RX Member Subscriber Plan / Payer (Ef fective 2022-Present) Name:Cora Prajapati Relation to Subscriber:Self Name:Cora Prajapati Payer ID:Not on file Group ID:[id number] Type:RX Commercial Address: [place] RX [employer] PLANS (INTERNAL) [facility] RX [employer] DATA Medicare Part B Care Teams Elevator Runner Relationship Specialty Start Date End Date Dee Light MD [address] [place] [address] PCP - General Family Practice 12/26/20
== END 2025-03-13 08:41 | disposition home or self-care (01) ==
LOC: ANHFOHIMG 08:41
PROVIDERS: PCP Family Medicine; Visit Provider Family Medicine
DX: Z78.0 Asymptomatic menopausal state (principal); Z13.820 Encounter for screening for osteoporosis; M85.852 Other specified disorders of bone density and structure, left thigh
CPT/HCPCS: 77080

== ENCOUNTER 2025-05-11 09:53 | Outpatient (CLI) | payer MEDICARE, OTHER, SELFPAY ==
--- NOTE | ~2025-05-11 | MM_ITS ---
EXAMINATION: MM screening vee BI w jamie HISTORY: Screening. TECHNIQUE: Craniocaudal and mediolateral oblique 3-D tomosynthesis images were obtained and synthetic 2-D images were generated. CAD analysis was submitted and interpreted. COMPARISON: 2023, 2022, and 2021. BREAST PARENCHYMAL COMPOSITION: Not Dense: The breasts are almost entirely fatty FINDINGS: No suspicious masses are seen. There are no suspicious calcifications. No unexplained architectural distortion is seen. There are no skin or nipple abnormalities identified. There is no adenopathy seen on the images submitted. IMPRESSION: No mammographic evidence to suggest malignancy is seen. The patient may return to screening mammography as per ACR guidelines. BI-RADS 1 - Negative. Reviewed, dictated and finalized at location C. TRODYNAMICIST
== END 2025-05-11 09:54 | disposition home or self-care (01) ==
LOC: ANHFOHIMG 09:55
PROVIDERS: PCP Family Medicine; Visit Provider Obstetrics & Gynecology
DX: Z12.31 Encounter for screening mammogram for malignant neoplasm of breast (principal)
CPT/HCPCS: 77063; 77067

== ENCOUNTER 2025-05-18 09:47 | Outpatient (CLI) | payer MEDICARE, OTHER, SELFPAY ==
--- NOTE | ~2025-05-18 | XR_ITS ---
EXAMINATION: XR hip LT 2V w AP pelvis, 05/18/2025 9:50 COOK JELLY HISTORY: M25.552 - Pain in left hip COMPARISON: No comparisons available. Findings: No acute fracture or malalignment. No significant degenerative changes. Soft tissues unremarkable. Impression: No acute fracture or malalignment. Reviewed, dictated and finalized at location P. JELLY Impression: No acute fracture or malalignment.
== END 2025-05-18 09:48 | disposition home or self-care (01) ==
LOC: GOSHIMG 09:48
PROVIDERS: PCP Family Medicine; Visit Provider Orthopaedic Surgery
DX: M25.552 Pain in left hip (principal)
CPT/HCPCS: 73502